=== PATIENT | male | born 1940 | race Caucasian/White ===

== ENCOUNTER → 2019-07-28 00:01 | Outpatient (RCR) | payer MEDICARE, SELFPAY | LOC: ONCMED 06-30 06:07 | PROVIDERS: Family Provider Physician Assistant Medical; Visit Provider Internal Medicine Medical Oncology | DX: Z51.11 Encounter for antineoplastic chemotherapy (principal); Z51.12 Encounter for antineoplastic immunotherapy; C83.38 Diffuse large B-cell lymphoma, lymph nodes of multiple sites; E78.5 Hyperlipidemia, unspecified; I25.10 Atherosclerotic heart disease of native coronary artery without angina pectoris; I25.5 Ischemic cardiomyopathy; I11.0 Hypertensive heart disease with heart failure; I50.9 Heart failure, unspecified; J44.9 Chronic obstructive pulmonary disease, unspecified; G25.0 Essential tremor; H40.9 Unspecified glaucoma; F17.210 Nicotine dependence, cigarettes, uncomplicated; Z79.82 Long term (current) use of aspirin; Z79.899 Other long term (current) drug therapy; Z85.118 Personal history of other malignant neoplasm of bronchus and lung; Z90.2 Acquired absence of lung [part of]; Z87.01 Personal history of pneumonia (recurrent) | CPT/HCPCS: 80053 ×3; 83615 ×3; 85025 ×3; 96367 ×2; 96368; 96372; 96375; 96413 ×3; 96415; 96417; 99214; J1100; J1453; J1642 ×4; J2405 ×2; J2469; J2505; J7040 ×5; J7050 ×2; J9070 ×2; J9181 ×3; J9312 ×2; J9370 ==

== ENCOUNTER 2019-08-11 05:41 | Outpatient (RCR) | payer MEDICARE, SELFPAY ==
[2019-08-04 12:35] LABS: Basophils # 0.1 10^3/uL (0.0-0.1); Basophils % 0.6 %; Eosinophils # 0.1 10^3/uL (0.0-0.8); Hemoglobin 11.2 g/dL (11.7-16.6); Lymphocytes # 1.5 10^3/uL (0.8-4.8); Lymphocytes % 14.6 %; Mean Corpuscular HGB Conc 29.5 g/dL (30.0-36.0); Mean Corpuscular Hemoglobin 25.3 pg (28.0-34.0); Mean Platelet Volume 10.9 fL (7.4-10.4); Monocytes # 0.8 10^3/uL (0.2-0.9); Monocytes % 7.4 %; Neutrophils # 7.3 10^3/uL (1.8-7.7); Neutrophils % 72.1 %; Nucleated Red Blood Cells % 0 %; Platelet Count 354 10^3/cmm (130-400); Red Blood Count 4.42 10^6/uL (4.1-5.3); Red Cell Distribution Width 15.5 % (12.1-15.1); White Blood Count 10.2 10^3/uL (4.0-10.0)
[2019-08-10 15:50] LABS: Basophils % 0.5 %; Eosinophils # 0.1 10^3/uL (0.0-0.8); Eosinophils % 0.9 %; Hematocrit 38.3 % (42.0-52.0); Lymphocytes # 1.5 10^3/uL (0.8-4.8); Lymphocytes % 17.5 %; Mean Corpuscular HGB Conc 28.7 g/dL (30.0-36.0); Mean Corpuscular Hemoglobin 24.9 pg (28.0-34.0); Mean Corpuscular Volume 86.8 fL (80-94); Mean Platelet Volume 11.2 fL (7.4-10.4); Monocytes # 0.9 10^3/uL (0.2-0.9); Monocytes % 10.4 %; Neutrophils # 5.9 10^3/uL (1.8-7.7); Neutrophils % 69.4 %; Nucleated Red Blood Cells % 0 %; Platelet Count 382 10^3/cmm (130-400); Red Blood Count 4.41 10^6/uL (4.1-5.3); Red Cell Distribution Width 15.2 % (12.1-15.1); White Blood Count 8.5 10^3/uL (4.0-10.0)
[2019-08-10 16:49] LABS: Alanine Aminotransferase 6 U/L (0-41); Albumin Level 3.8 g/dL (3.5-5.2); Alkaline Phosphatase 105 IU/L (40-130); Anion Gap 15.8 (5-19); Aspartate Amino Transferase 12 U/L (0-40); Blood Urea Nitrogen 10 mg/dL (8-23); Calcium 9.6 mg/Dl (8.8-10.2); Carbon Dioxide 26 mmol/L (22-29); Chloride 101 mmol/L (98-107); Globulin 2.8 g/dL (1.3-4.6); Glucose 129 mg/dL (74-106); Lactate Dehydrogenase 161 U/L (135-225); Potassium 3.8 mmol/L (3.5-5.1); Sodium 139 mmol/L (136-145); Total Bilirubin 0.2 mg/dL (0.15-1.2); Total Protein 6.6 g/dL (6.6-8.7)
--- NOTE | 2019-08-15 12:25 | ONC FU_ITS ---
Dr. Felton Patient Follow-Up Note Patient: Lazaro Vásquez Unit #: [id number]: 1940 Dicatated By: José Manuel Felton M.D.Date of Visit:Aug 11, 2019 Onc Med Follow-up/Prog Note Chief Complaint: Lymphoma. 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 He has a history of Crohn's disease, for which he had been on treatment with Remicade. 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 There was no invasion of pleural effusions and all margins were free. There was no involvement in 5 peribronchial lymph nodes and no involvement in a total of 8 mediastinal lymph nodes. His disease was pathologic stage IA2 (T1b, N0, M0). He received no additional treatment. In November 2018 he had presented with an enlarged lymph node on the right side of the neck. According to his 's description, it came up very quickly. Neck CT on 12/11/2018 showed a well circumcised mass at level IIA on the right side measuring 2.8 x 2.0 x 3.3 cm. There was no adjacent lymphadenopathy noted. Surveillance chest CT on 01/21/2019 showed complete atelectasis of the right middle lobe, new from previous studies. A mixed soft tissue and groundglass pulmonary nodule within the left upper lobe was not significantly changed measuring 1.7 x 1.2 cm. There were no pathologically enlarged thoracic lymph nodes. Further evaluation with PET/CT showed marked increase in metabolic activity in the right neck mass, SUV 16.82. Multiple small right paratracheal lymph nodes were present extending to the pretracheal area with maximum SUV 2.40. An extensive right upper anterolateral mediastinal tissue mass showed marked increase metabolic activity, SUV 8.98. Right level II and III axillary lymph nodes also demonstrated increased metabolic activity. There was no pulmonary nodularity or focal increase of metabolic activity noted. A marked focus of increased metabolic activity was noted in the cecum corresponding to solid soft tissue, maximum SUV 9.0. The uptake in the neck mass, mediastinal lymph nodes, and axillary lymph nodes was felt to be consistent with metastatic involvement. The significance of the uptake in the cecum was not mentioned. He underwent excisional biopsy of the right neck mass on 03/03/2019. Pathology was consistent with diffuse large B-cell lymphoma. The B cells were CD30 positive and MUM-1 negative, consistent with germinal center subtype. I had seen him initially on 03/19/2019. I reviewed options for treatment. He was agreeable to begin a trial of chemotherapy with R-CEOP. In addition, I had a discussion with his parachute repairer, Dr. Isaías Patino, and he was agreeable to stopping the Remicade. His medical history is also significant for hypertension, dyslipidemia, and coronary artery disease with ischemic cardiomyopathy and congestive heart failure. Other medical illnesses include COPD, esophageal dysmotility, benign essential tremor, and glaucoma. He has a history of nephrolithiasis. He has a history of smoking for 1 pack of cigarettes daily for 50 years. He has cut down to 2 or 3 cigarettes per day. INTERIM HISTORY: He began cycle 1 of R-CEOP on 04/14/2019. He was able to tolerated with acceptable toxicity, and he proceeded with cycle 2 on 05/06/2019. Restaging PET/CT on 05/23/2019 showed a region of activity in the subcutaneous posterior triangle on the right side of the neck measuring 9 mm with SUV 5.5, suspicious for residual malignancy. There were no other sites of abnormal uptake. A left upper lobe pulmonary nodule was FDG negative. Activity at the cecal anastomosis appeared physiological. He proceeded with cycle 3 of R-CEOP on 06/01/2019. On 06/22/2019 he had presented to the emergency room in [place] with epistaxis and hemoptysis. His blood counts were adequate. He was transferred to [facility] in [place] for admission. On evaluation, which included bronchoscopy, he was determined to have pneumonia. He was discharged home on antibiotic therapy and the pulmonary nebulizer. I had seen him for a follow-up visit on 07/07/2019. I did opt to delay his chemotherapy, as he was still recovering from the pneumonia. He then returned to complete his fourth cycle of R-CEOP on 07/15/2019. Restaging PET/CT on 08/08/2019 showed no evidence of active malignancy. The left upper lobe groundglass pulmonary nodule remained FDG negative. He is seen for a follow-up visit. He says he is feeling pretty good, though he still has limited activity. He is up and around. ECOG score is 2. His appetite is not too good. He has been supplementing with Ensure. His weight is stable. He does not have fever or night sweats. He does have some sinus drainage. He says his cough is about gone. He has had no further hemoptysis. He does not complain of shortness of breath or chest pain. He had diarrhea 1 day following his last chemotherapy treatment. He otherwise tends to have constipation. He has no other GI complaints. Bladder function remains adequate. He has no significant joint or bone pain. He does report having numbness/tingling in his feet. Medications: amLODIPine Besylate 1 (10 mg) Tablet Oral daily, Aspirin 1 (81 mg) Tablet Oral daily, Atorvastatin Calcium 1 (20 mg) Tablet Oral daily, Carvedilol 1 (3.125 mg) Tablet Oral b.i.d., Ferrous Sulfate 1 Tablet (of 325 (65 fe) mg) Tablet, enteric coated Oral daily, Losartan Potassium 1 (50 mg) Tablet Oral daily, Plavix 1 (75 mg) Tablet Oral daily, Protonix 1 Tablet (of 40 mg) Tablet, enteric coated Oral daily, Questran 4 (4 g/dose) Powder Oral PRN Allergies: Codeine Sulfate Review of Systems: Constitutional - His energy is getting better. He has limited activity, but he is up and around. His appetite is not too good. He is supplementing with Ensure. His weight is stable. He does not have fever or night sweats. ECOG score is 2, ENMT - He has sinus drainage. He had sore mouth. He used mouthwash and that took care of it. No sore throat or difficulty swallowing, Hematologic/Lymphatic - He bruises easily, Respiratory - No shortness of breath. His cough has gotten much better. He has not had anymore blood come up. No pleuritic pain or hemoptysis, Cardiovascular - No angina pain. No palpitations, Gastrointestinal - No nausea or vomiting. No heartburn or acid reflux. He takes Miralax for his bowels. No blood in the stool or black stools, Genitourinary (M) - No dysuria or hematuria. No urinary frequency. No urgency or incontinence, Musculoskeletal - No joint or bone pain, Integumentary - No skin complications, Neurologic - No headache. He gets dizzy and light-headed. He has numbness and tingling in his feet, Psychiatric - No anxiety or depression. No insomnia. Vital Signs: Performed on Aug 11, 2019 09:49 Height - 67.00 in Weight - 123.0 lbs (LOW) BSA - 1.64 sq.m BMI - 19.26 Temperature - 98.1 F (LOW) Pulse - 71 /min Respiration - 15 /min BP - 124/66 mm(hg) O2 Sat - 98 % Pain - 0 Physical Examination: Constitutional - He still appears somewhat weak generally, Eyes - Sclerae nonicteric. Conjunctivae clear, ENMT - No lesions noted in the oral cavity, Hematologic/Lymphatic - No cervical, clavicular, or axillary adenopathy noted, Respiratory - Lungs sound clear with diminished air movement bilaterally, Cardiovascular - Heart rhythm is irregular. There is no murmur, gallop, or rub noted, Abdomen - Soft. Liver and spleen are not enlarged. There is no abdominal mass or ascites noted and there is no inguinal adenopathy, Extremities - No edema. He has chronic purpura on both arms, Integumentary - He has an eczematous skin eruption on both hands, worse on the left, Neurologic - No focal neurologic deficits noted. Lab/Imaging: Test performed on Aug 10, 2019 11:30 Glucose 129 mg/dL LDH, Total 161 IU/L BUN 10 mg/dL Creatinine 0.6 mg/dL Cr Clearance (Est) 79.42 mL/min Sodium 139 mmol/L Potassium 3.8 mmol/L Chloride 101 mmol/L CO2 26 mmol/L Calcium 9.6 mg/dL Protein, Total 6.6 g/dL Albumin 3.8 g/dL Globulin 2.8 g/dL Bilirubin, Total 0.2 mg/dL Alkaline Phosphatase 105 IU/L AST (SGOT) 12 IU/L ALT (SGPT) 6 IU/L WBC 8.5 10^9/L RBC 4.41 10^12/L HGB 11.0 g/dL HCT 38.3 % MCV 86.8 fl MCH 24.9 pg MCHC 28.7 g/dL RDW 15.2 % Platelet Count 382 10^9/L MPV 11.2 fL Neutrophils (Gran) 5.9 10^9/L Lymphocytes 1.5 10^9/L Monocytes 0.9 10^9/L Eosinophils 0.1 10^9/L Basophils 0.0 10^9/L Manual Lymphocytes 17.5 % Manual Monocytes 10.4 % Manual Eosinophils 0.9 % Manual Basophils 0.5 % NRBCs 0.0 /100 WBC Impression: 1. Patient with diffuse large B-cell lymphoma, germinal center subtype. By clinical evaluation, he had at least stage II disease. His IPI score with stage II disease and normal LDH was 2, low-intermediate risk. 2. There was also PET/CT evidence of FDG uptake in the area of the cecum, clinical significance of which was uncertain. 3. 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 4. He has Crohn's disease for which he had been on long-term treatment with Remicade. His other medical illnesses include: 5. Hypertension. 6. Dyslipidemia. 7. Coronary artery disease with ischemic cardiomyopathy and congestive heart failure. 8. COPD. 9. Esophageal dysmotility. 10. Benign essential tremor. 11. History of nephrolithiasis. 12. Glaucoma. He has undergone treatment with 4 cycles of R-CEOP chemotherapy from 04/14/2019 07/15/2019. He also was taken off Remicade. He required hospital admission for pneumonia on 06/22/2019, though he was not neutropenic. He otherwise tolerated the chemotherapy well. He has had a complete response by PET/CT. Thus far there has been no indication clinically of any exacerbation of his Crohn's disease since he has been off the Remicade. Plan: As he has had a very good response to the chemotherapy and he will remain off immunosuppression, he will now be followed on observation/expectant management for the lymphoma. He will continue his regular follow-up with Dr. Patino. I will see him again in 3 months, or sooner as needed. Signed By: José Manuel Felton M.D. <<Signature on File>>
== END 2019-08-28 23:59 | disposition home or self-care (01) ==
LOC: ONCMED 05:41
PROVIDERS: Family Provider Physician Assistant Medical; Visit Provider Internal Medicine Medical Oncology
DX: C83.38 Diffuse large B-cell lymphoma, lymph nodes of multiple sites (principal); Z45.2 Encounter for adjustment and management of vascular access device; K50.90 Crohn's disease, unspecified, without complications; Z90.2 Acquired absence of lung [part of]; E78.5 Hyperlipidemia, unspecified; I25.10 Atherosclerotic heart disease of native coronary artery without angina pectoris; I25.5 Ischemic cardiomyopathy; I11.0 Hypertensive heart disease with heart failure; I50.9 Heart failure, unspecified; J44.9 Chronic obstructive pulmonary disease, unspecified; G25.0 Essential tremor; H40.9 Unspecified glaucoma; F17.210 Nicotine dependence, cigarettes, uncomplicated; Z79.899 Other long term (current) drug therapy; Z79.82 Long term (current) use of aspirin; Z79.02 Long term (current) use of antithrombotics/antiplatelets; Z85.118 Personal history of other malignant neoplasm of bronchus and lung; Z87.442 Personal history of urinary calculi; Z87.01 Personal history of pneumonia (recurrent)
CPT/HCPCS: 80053; 83615; 85025; 96523; 99214

== ENCOUNTER 2019-11-04 12:27 | Outpatient (CLI) | payer MEDICARE, SELFPAY ==
[2019-11-04 12:53] LABS: Basophils % 0.4 %; Eosinophils # 0.1 10^3/uL (0.0-0.8); Eosinophils % 1.7 %; Hematocrit 39.6 % (42.0-52.0); Hemoglobin 11.6 g/dL (11.7-16.6); Lymphocytes # 1.6 10^3/uL (0.8-4.8); Lymphocytes % 19.5 %; Mean Corpuscular HGB Conc 29.3 g/dL (30.0-36.0); Mean Corpuscular Hemoglobin 23.9 pg (28.0-34.0); Mean Corpuscular Volume 81.5 fL (80-94); Mean Platelet Volume 10.4 fL (7.4-10.4); Monocytes # 0.8 10^3/uL (0.2-0.9); Monocytes % 8.9 %; Neutrophils # 5.4 10^3/uL (1.8-7.7); Neutrophils % 63.8 %; Nucleated Red Blood Cells % 0 %; Platelet Count 254 10^3/cmm (130-400); Red Blood Count 4.86 10^6/uL (4.1-5.3); Red Cell Distribution Width 15.9 % (12.1-15.1); White Blood Count 8.4 10^3/uL (4.0-10.0)
[2019-11-04 13:13] LABS: Alanine Aminotransferase < 5 U/L (0-41); Albumin Level 3.7 g/dL (3.5-5.2); Alkaline Phosphatase 107 IU/L (40-130); Anion Gap 14.6 (5-19); Aspartate Amino Transferase 12 U/L (0-40); Blood Urea Nitrogen 8 mg/dL (8-23); Calcium 9.3 mg/dL (8.5-10.5); Carbon Dioxide 26 mmol/L (22-29); Chloride 103 mmol/L (98-107); Globulin 2.7 g/dL (1.3-4.6); Glucose 123 mg/dL (65-115); Lactate Dehydrogenase 173 U/L (135-225); Osmolality Calculated 287 mOsm/kg (285-295); Potassium 3.6 mmol/L (3.5-5.1); Sodium 140 mmol/L (136-145); Total Bilirubin 0.4 mg/dL (0.15-1.2); Total Protein 6.4 g/dL (6.6-8.7)
[2019-11-04 14:01] LABS: Slide Review Slide Review Perform
[2019-11-04 15:38] LABS: Iron 42 ug/dL (59-158); Percent Saturation 17.5 % (20-50); Total Iron Binding Capacity 239 mcg/dl; Unsaturated Iron Binding 197 ug/dL (112-347)
--- NOTE | 2019-11-04 19:03 | ONC FU_ITS ---
Dr. Felton Patient Follow-Up Note Patient: Lazaro Vásquez Unit #: [id number]: [id number] Dicatated By: José Manuel Felton M.D.Date of Visit:Nov 04, 2019 Onc Med Follow-up/Prog Note Chief Complaint: Lymphoma. 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 He has a history of Crohn's disease, for which he had been on treatment with Remicade. 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 There was no invasion of pleural effusions and all margins were free. There was no involvement in 5 peribronchial lymph nodes and no involvement in a total of 8 mediastinal lymph nodes. His disease was pathologic stage IA2 (T1b, N0, M0). He received no additional treatment. In November 2018 he had presented with an enlarged lymph node on the right side of the neck. According to his 's description, it came up very quickly. Neck CT on 12/11/2018 showed a well circumcised mass at level IIA on the right side measuring 2.8 x 2.0 x 3.3 cm. There was no adjacent lymphadenopathy noted. Surveillance chest CT on 01/21/2019 showed complete atelectasis of the right middle lobe, new from previous studies. A mixed soft tissue and groundglass pulmonary nodule within the left upper lobe was not significantly changed measuring 1.7 x 1.2 cm. There were no pathologically enlarged thoracic lymph nodes. Further evaluation with PET/CT showed marked increase in metabolic activity in the right neck mass, SUV 16.82. Multiple small right paratracheal lymph nodes were present extending to the pretracheal area with maximum SUV 2.40. An extensive right upper anterolateral mediastinal tissue mass showed marked increase metabolic activity, SUV 8.98. Right level II and III axillary lymph nodes also demonstrated increased metabolic activity. There was no pulmonary nodularity or focal increase of metabolic activity noted. A marked focus of increased metabolic activity was noted in the cecum corresponding to solid soft tissue, maximum SUV 9.0. The uptake in the neck mass, mediastinal lymph nodes, and axillary lymph nodes was felt to be consistent with metastatic involvement. The significance of the uptake in the cecum was not mentioned. He underwent excisional biopsy of the right neck mass on 03/03/2019. Pathology was consistent with diffuse large B-cell lymphoma. The B cells were CD30 positive and MUM-1 negative, consistent with germinal center subtype. I had seen him initially on 03/19/2019. I reviewed options for treatment. He was agreeable to begin a trial of chemotherapy with R-CEOP. In addition, I had a discussion with his site damage prevention technician, Dr. Isaías Patino, and he was agreeable to stopping the Remicade. His medical history is also significant for hypertension, dyslipidemia, and coronary artery disease with ischemic cardiomyopathy and congestive heart failure. Other medical illnesses include COPD, esophageal dysmotility, benign essential tremor, and glaucoma. He has a history of nephrolithiasis. He has a history of smoking for 1 pack of cigarettes daily for 50 years. He has cut down to 2 or 3 cigarettes per day. INTERIM HISTORY: He began cycle 1 of R-CEOP on 04/14/2019. He was able to tolerated with acceptable toxicity, and he proceeded with cycle 2 on 05/06/2019. Restaging PET/CT on 05/23/2019 showed a region of activity in the subcutaneous posterior triangle on the right side of the neck measuring 9 mm with SUV 5.5, suspicious for residual malignancy. There were no other sites of abnormal uptake. A left upper lobe pulmonary nodule was FDG negative. Activity at the cecal anastomosis appeared physiological. He proceeded with cycle 3 of R-CEOP on 06/01/2019. On 06/22/2019 he had presented to the emergency room in [place] with epistaxis and hemoptysis. His blood counts were adequate. He was transferred to [facility] in [place] for admission. On evaluation, which included bronchoscopy, he was determined to have pneumonia. He was discharged home on antibiotic therapy and the pulmonary nebulizer. I had seen him for a follow-up visit on 07/07/2019. I did opt to delay his chemotherapy, as he was still recovering from the pneumonia. He then returned to complete his fourth cycle of R-CEOP on 07/15/2019. Restaging PET/CT on 08/08/2019 showed no evidence of active malignancy. The left upper lobe groundglass pulmonary nodule remained FDG negative. He was then followed on observation/expectant management. He is seen for a follow-up visit. He had seen Alejandro Robbins last week after he had developed low-grade fever and chills. He was given antibiotic therapy, and he has been getting better. His energy had been pretty good prior to that illness, though he still had limited activity. His ECOG score is 2. His appetite comes and goes, but he has gained weight. He has otherwise not have fever or night sweats. His breathing has been good. He has not had cough, and he does not complain of chest pain. He has not been having nausea or vomiting. He has diarrhea associated with the Crohn's disease, but it is managed adequately with medication. He has no complaints. He has no significant joint or bone pain. He does not complain of headache or dizziness. He has some numbness/tingling in his feet. Medications: amLODIPine Besylate 1 (10 mg) Tablet Oral daily, Aspirin 1 (81 mg) Tablet Oral daily, Atorvastatin Calcium 1 (20 mg) Tablet Oral daily, Carvedilol 1 (3.125 mg) Tablet Oral b.i.d., Ferrous Sulfate 1 Tablet (of 325 (65 fe) mg) Tablet, enteric coated Oral daily, Levaquin 20 mL Liquid Oral daily for 10 days, Losartan Potassium 1 (50 mg) Tablet Oral daily, Plavix 1 (75 mg) Tablet Oral daily, Protonix 1 Tablet (of 40 mg) Tablet, enteric coated Oral daily, Questran 4 (4 g/dose) Powder Oral PRN Allergies: Codeine Sulfate Review of Systems: Constitutional - He feels that he is doing better overall. His appetite is good and weight is up 6 pounds from last visit. He had a recent fever with chills, for which he has been on antibiotic therapy. No hot flashes or night sweats. ECOG score is 2, ENMT - No sinus congestion/drainage. No mouth sores. No sore throat or difficulty swallowing, Hematologic/Lymphatic - No abnormal bruising or bleeding, Respiratory - No shortness of breath. No cough. No pleuritic pain or hemoptysis, Cardiovascular - No angina pain. No palpitations, Gastrointestinal - No nausea or vomiting. No heartburn or acid reflux. He has diarrhea associated with Crohn's disease, but it is adequately controlled with medication. No constipation. No blood in the stool or black stools, Genitourinary (M) - No dysuria or hematuria. No urinary frequency. No urgency or incontinence, Musculoskeletal - No joint or bone pain, Integumentary - No skin complications, Neurologic - No headache or dizziness. He has numbness/tingling in her feet, Psychiatric - No anxiety or depression. No insomnia. Vital Signs: Performed on Nov 04, 2019 14:03 Height - 67.00 in Weight - 129.4 lbs (HIGH) BSA - 1.68 sq.m BMI - 20.27 Temperature - 97.6 F (LOW) Pulse - 59 /min (LOW) Respiration - 20 /min BP - 140/65 mm(hg) O2 Sat - 96 % Pain - 0 Physical Examination: Constitutional - He appears somewhat frail generally, Eyes - Sclerae nonicteric. Conjunctivae clear, ENMT - No lesions noted in the oral cavity, Hematologic/Lymphatic - No cervical, clavicular, or axillary adenopathy noted, Respiratory - Lungs sound clear with diminished air movement bilaterally, Cardiovascular - Heart rhythm is irregular. There is no murmur, gallop, or rub noted, Abdomen - Soft. Liver and spleen are not enlarged. There is no abdominal mass or ascites noted and there is no inguinal adenopathy, Extremities - No edema. He has chronic purpura on both arms, Neurologic - No focal neurologic deficits noted. Lab/Imaging: Test performed on Nov 04, 2019 12:40 LDH (Total) 173 U/L Sodium 140 mmol/L Potassium 3.6 mmol/L Chloride 103 mmol/L CO2 26 mmol/L Anion Gap 14.6 BUN 8 mg/dL Creatinine 0.7 mg/dL Cr Clearance (Est) 68.0800 mL/min Glucose 123 mg/dL Calcium 9.3 mg/dL Protein, Total 6.4 g/dL Albumin 3.7 g/dL Globulin 2.7 g/dL Bilirubin, Total 0.4 mg/dL ALT (SGPT) < 5 U/L AST (SGOT) 12 U/L Alkaline Phosphatase 107 IU/L WBC 8.4 10 3/uL RBC 4.86 10 6/uL HGB 11.6 g/dL HCT 39.6 % MCV 81.5 fL MCH 23.9 pg MCHC 29.3 g/dL RDW 15.9 % Platelet Count 254 10 3/cmm MPV 10.4 fL Neutrophils 5.4 10 3/uL Lymphocytes 1.6 10 3/uL Monocytes 0.8 10 3/uL Eosinophils 0.1 10 3/uL Basophils 0.0 10 3/uL Neutrophil % 63.8 % Lymphocyte % 19.5 % Monocyte % 8.9 % Eosinophil % 1.7 % Basophils % 0.4 % CBC Slide Review Slide Review Perform SLIDE REVIEW AGREES WITH AUTO DIFF. Impression: 1. Patient with diffuse large B-cell lymphoma, germinal center subtype. By clinical evaluation, he had at least stage II disease. His IPI score with stage II disease and normal LDH was 2, low-intermediate risk. 2. There was also PET/CT evidence of FDG uptake in the area of the cecum, clinical significance of which was uncertain. 3. 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 4. He has Crohn's disease for which he had been on long-term treatment with Remicade. His other medical illnesses include: 5. Hypertension. 6. Dyslipidemia. 7. Coronary artery disease with ischemic cardiomyopathy and congestive heart failure. 8. COPD. 9. Esophageal dysmotility. 10. Benign essential tremor. 11. History of nephrolithiasis. 12. Glaucoma. He has undergone treatment with 4 cycles of R-CEOP chemotherapy from 04/14/2019 07/15/2019. He also was taken off Remicade. He required hospital admission for pneumonia on 06/22/2019, though he was not neutropenic. He otherwise tolerated the chemotherapy well. He had a complete response by PET/CT. He is being followed on observation/expectant management. He recently was given antibiotic therapy for a febrile illness, which does appear to be resolving. He has otherwise been stable clinically. He has been able to manage his Crohn's disease adequately. Thus far there has been no evidence of recurrence of the lymphoma. He remains mildly anemic. Plan: He continues on observation/expectant management for the lymphoma. He will continue to have his port flushed monthly. I will see him again in 3 months. In the meantime, I will check his serum iron studies. If he is iron deficient, I will try and get him approved for parenteral iron replacement with Injectafer, as the GI symptoms with his Crohn's disease will preclude oral iron therapy. Signed By: José Manuel Felton M.D. <<Signature on File>>
== END 2019-11-04 12:28 | disposition home or self-care (01) ==
LOC: ONCMED 12:27
PROVIDERS: Family Provider Physician Assistant Medical; PCP Physician Assistant Medical; Visit Provider Internal Medicine Medical Oncology
DX: Z08 Encounter for follow-up examination after completed treatment for malignant neoplasm (principal); Z85.72 Personal history of non-Hodgkin lymphomas; Z85.118 Personal history of other malignant neoplasm of bronchus and lung; K50.90 Crohn's disease, unspecified, without complications; E78.5 Hyperlipidemia, unspecified; D64.9 Anemia, unspecified; I25.10 Atherosclerotic heart disease of native coronary artery without angina pectoris; I25.5 Ischemic cardiomyopathy; I11.0 Hypertensive heart disease with heart failure; I50.9 Heart failure, unspecified; J44.9 Chronic obstructive pulmonary disease, unspecified; G25.0 Essential tremor; Z87.442 Personal history of urinary calculi; H40.9 Unspecified glaucoma; Z79.82 Long term (current) use of aspirin; Z79.899 Other long term (current) drug therapy; Z87.01 Personal history of pneumonia (recurrent); Z92.21 Personal history of antineoplastic chemotherapy
CPT/HCPCS: 36591; 80053; 83540; 83550; 83615; 85025; 99214

== ENCOUNTER 2020-02-09 12:51 | Outpatient (CLI) | payer MEDICARE, SELFPAY ==
[2020-02-09 13:54] LABS: Alanine Aminotransferase 6 U/L (0-41); Albumin Level 3.6 g/dL (3.5-5.2); Alkaline Phosphatase 126 IU/L (40-130); Anion Gap 13.4 (5-19); Aspartate Amino Transferase 11 U/L (0-40); Blood Urea Nitrogen 5 mg/dL (8-23); Calcium 8.6 mg/dL (8.5-10.5); Carbon Dioxide 26 mmol/L (22-29); Chloride 102 mmol/L (98-107); Globulin 2.1 g/dL (1.3-4.6); Glucose 122 mg/dL (65-115); Lactate Dehydrogenase 124 U/L (135-225); Osmolality Calculated 283 mOsm/kg (285-295); Potassium 3.4 mmol/L (3.5-5.1); Sodium 138 mmol/L (136-145); Total Bilirubin 0.3 mg/dL (0.15-1.2); Total Protein 5.7 g/dL (6.6-8.7)
[2020-02-09 14:57] LABS: Basophils # 0.1 10^3/uL (0.0-0.1); Basophils % 0.4 %; Eosinophils # 0.1 10^3/uL (0.0-0.8); Eosinophils % 0.5 %; Hematocrit 45.9 % (42.0-52.0); Hemoglobin 14.1 g/dL (11.7-16.6); Lymphocytes # 1.7 10^3/uL (0.8-4.8); Lymphocytes % 15.3 %; Mean Corpuscular HGB Conc 30.7 g/dL (30.0-36.0); Mean Corpuscular Hemoglobin 26.4 pg (28.0-34.0); Mean Platelet Volume 10.9 fL (7.4-10.4); Monocytes # 0.9 10^3/uL (0.2-0.9); Monocytes % 7.7 %; Neutrophils # 8.35 10^3/uL (1.8-7.7); Nucleated Red Blood Cells % 0 %; Platelet Count 229 10^3/cmm (130-400); Red Blood Count 5.34 10^6/uL (4.1-5.3); Red Cell Distribution Width 16.3 % (12.1-15.1); White Blood Count 11.2 10^3/uL (4.0-10.0)
--- NOTE | 2020-02-09 19:09 | ONC FU_ITS ---
Dr. Felton Patient Follow-Up Note Patient: Lazaro Vásquez Unit #: [id number]: 1940 Dicatated By: José Manuel Felton M.D.Date of Visit:Feb 09, 2020 Onc Med Follow-up/Prog Note Chief Complaint: Lymphoma. 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 He has a history of Crohn's disease, for which he had been on treatment with Remicade. 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 There was no invasion of pleural effusions and all margins were free. There was no involvement in 5 peribronchial lymph nodes and no involvement in a total of 8 mediastinal lymph nodes. His disease was pathologic stage IA2 (T1b, N0, M0). He received no additional treatment. In November 2018 he had presented with an enlarged lymph node on the right side of the neck. According to his 's description, it came up very quickly. Neck CT on 12/11/2018 showed a well circumcised mass at level IIA on the right side measuring 2.8 x 2.0 x 3.3 cm. There was no adjacent lymphadenopathy noted. Surveillance chest CT on 01/21/2019 showed complete atelectasis of the right middle lobe, new from previous studies. A mixed soft tissue and groundglass pulmonary nodule within the left upper lobe was not significantly changed measuring 1.7 x 1.2 cm. There were no pathologically enlarged thoracic lymph nodes. Further evaluation with PET/CT showed marked increase in metabolic activity in the right neck mass, SUV 16.82. Multiple small right paratracheal lymph nodes were present extending to the pretracheal area with maximum SUV 2.40. An extensive right upper anterolateral mediastinal tissue mass showed marked increase metabolic activity, SUV 8.98. Right level II and III axillary lymph nodes also demonstrated increased metabolic activity. There was no pulmonary nodularity or focal increase of metabolic activity noted. A marked focus of increased metabolic activity was noted in the cecum corresponding to solid soft tissue, maximum SUV 9.0. The uptake in the neck mass, mediastinal lymph nodes, and axillary lymph nodes was felt to be consistent with metastatic involvement. The significance of the uptake in the cecum was not mentioned. He underwent excisional biopsy of the right neck mass on 03/03/2019. Pathology was consistent with diffuse large B-cell lymphoma. The B cells were CD30 positive and MUM-1 negative, consistent with germinal center subtype. I had seen him initially on 03/19/2019. I reviewed options for treatment. He was agreeable to begin a trial of chemotherapy with R-CEOP. In addition, I had a discussion with his bilingual interpreter, Dr. Isaías Patino, and he was agreeable to stopping the Remicade. He began cycle 1 of R-CEOP on 04/14/2019. He was able to tolerated with acceptable toxicity, and he proceeded with cycle 2 on 05/06/2019. Restaging PET/CT on 05/23/2019 showed a region of activity in the subcutaneous posterior triangle on the right side of the neck measuring 9 mm with SUV 5.5, suspicious for residual malignancy. There were no other sites of abnormal uptake. A left upper lobe pulmonary nodule was FDG negative. Activity at the cecal anastomosis appeared physiological. He proceeded with cycle 3 of R-CEOP on 06/01/2019. On 06/22/2019 he had presented to the emergency room in [place] with epistaxis and hemoptysis. His blood counts were adequate. He was transferred to [facility] in [place] for admission. On evaluation, which included bronchoscopy, he was determined to have pneumonia. He was discharged home on antibiotic therapy and the pulmonary nebulizer. I had seen him for a follow-up visit on 07/07/2019. I did opt to delay his chemotherapy, as he was still recovering from the pneumonia. He then returned to complete his 4th cycle of R-CEOP on 07/15/2019. Restaging PET/CT on 08/08/2019 showed no evidence of active malignancy. The left upper lobe groundglass pulmonary nodule remained FDG negative. He was then followed on observation/expectant management. His medical history is also significant for hypertension, dyslipidemia, and coronary artery disease with ischemic cardiomyopathy and congestive heart failure. Other medical illnesses include COPD, esophageal dysmotility, benign essential tremor, and glaucoma. He has a history of nephrolithiasis. He has a history of smoking for 1 pack of cigarettes daily for 50 years. He has cut down to 2 or 3 cigarettes per day. INTERIM HISTORY: He is seen for a follow-up visit. He says he has been feeling pretty good generally, though he does have limited activity. His ECOG score is 2. He has good appetite. His weight is up 4 pounds. He does not have fever or night sweats. His only significant complaint is that for the past 2 days he has been having episodes of feeling dizzy/off balance. He says it comes and goes. He has had similar episodes in the past. He is not having headache, and he has no focal neurologic symptoms. He has no shortness of breath, cough, or chest pain. He currently has no GI/ complaints. His bowel function has been okay. He has no significant joint or bone pain. Medications: amLODIPine Besylate 1 (10 mg) Tablet Oral daily, Aspirin 1 (81 mg) Tablet Oral daily, Atorvastatin Calcium 1 (20 mg) Tablet Oral daily, Carvedilol 1 (3.125 mg) Tablet Oral b.i.d., Ferrous Sulfate 1 Tablet (of 325 (65 fe) mg) Tablet, enteric coated Oral daily, Levaquin 20 mL Liquid Oral daily for 10 days, Losartan Potassium 1 (50 mg) Tablet Oral daily, Plavix 1 (75 mg) Tablet Oral daily, Protonix 1 Tablet (of 40 mg) Tablet, enteric coated Oral daily, Questran 4 (4 g/dose) Powder Oral PRN Allergies: Codeine Sulfate Review of Systems: Constitutional - He has been feeling pretty good, but he continues to have very limited activity. Appetite is not too bad. His weight is up 4 pounds. He has no fever or night sweats. ECOG score is 2, ENMT - No sinus congestion/drainage. No mouth sores. No sore throat or difficulty swallowing, Hematologic/Lymphatic - No abnormal bruising or bleeding, Respiratory - No shortness of breath. No cough. No pleuritic pain or hemoptysis, Cardiovascular - No angina pain. No palpitations, Gastrointestinal - No nausea or vomiting. No heartburn or acid reflux. No diarrhea or constipation. No blood in the stool or black stools, Genitourinary (M) - No dysuria or hematuria. No urinary frequency. No urgency or incontinence, Musculoskeletal - No joint or bone pain, Integumentary - No skin rash, Neurologic - No headache. For the past 2 days he has been having episodes of feeling dizzy/off balance. It comes and goes. No numbness or tingling. No other focal neurologic symptoms, Psychiatric - No anxiety or depression. No insomnia. Vital Signs: Performed on Feb 09, 2020 13:56 Height - 67.00 in Weight - 133.6 lbs (HIGH) BSA - 1.70 sq.m BMI - 20.92 Temperature - 98.0 F (LOW) Pulse - 62 /min Respiration - 18 /min BP - 129/68 mm(hg) O2 Sat - 97 % Pain - 0 Physical Examination: Constitutional - He appears generally weak and frail, Eyes - Sclerae nonicteric. Conjunctivae clear, ENMT - No lesions noted in the oral cavity, Hematologic/Lymphatic - There is a 3 cm node palpable on the right side of the neck, there is a small nodule just superior to it. I do not feel any adenopathy on the left side of the neck and there is no axillary adenopathy noted, Respiratory - Lungs sound clear with diminished air movement bilaterally, Cardiovascular - Heart rhythm is irregular. The rate is controlled. There is no murmur, gallop, or rub noted, Abdomen - Soft. Liver and spleen are not enlarged. There is no abdominal mass or ascites noted. There is a left inguinal hernia present. There is no inguinal adenopathy noted, Extremities - No edema. He has chronic purpura on both arms, Neurologic - No focal neurologic deficits noted. Lab/Imaging: Test performed on Feb 09, 2020 14:39 WBC 11.2 10 3/uL RBC 5.34 10 6/uL HGB 14.1 g/dL HCT 45.9 % MCV 86.0 fL MCH 26.4 pg MCHC 30.7 g/dL RDW 16.3 % Platelet Count 229 10 3/cmm MPV 10.9 fL Neutrophils 8.35 10 3/uL Lymphocytes 1.7 10 3/uL Monocytes 0.9 10 3/uL Eosinophils 0.1 10 3/uL Basophils 0.1 10 3/uL Neutrophil % 75.0 % Lymphocyte % 15.3 % Monocyte % 7.7 % Eosinophil % 0.5 % Basophils % 0.4 % NRBC % 0 % Test performed on Feb 09, 2020 13:20 LDH (Total) 124 U/L Sodium 138 mmol/L Potassium 3.4 mmol/L Chloride 102 mmol/L CO2 26 mmol/L Anion Gap 13.4 BUN 5 mg/dL Creatinine 0.6 mg/dL Cr Clearance (Est) 78.1200 mL/min Glucose 122 mg/dL Calcium 8.6 mg/dL Protein, Total 5.7 g/dL Albumin 3.6 g/dL Globulin 2.1 g/dL Bilirubin, Total 0.3 mg/dL ALT (SGPT) 6 U/L AST (SGOT) 11 U/L Alkaline Phosphatase 126 IU/L Impression: 1. Patient with diffuse large B-cell lymphoma, germinal center subtype. By clinical evaluation, he had at least stage II disease. His IPI score with stage II disease and normal LDH was 2, low-intermediate risk. 2. There was also PET/CT evidence of FDG uptake in the area of the cecum, clinical significance of which was uncertain. 3. 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 4. He has Crohn's disease for which he had been on long-term treatment with Remicade. His other medical illnesses include: 5. Hypertension. 6. Dyslipidemia. 7. Coronary artery disease with ischemic cardiomyopathy and congestive heart failure. 8. COPD. 9. Esophageal dysmotility. 10. Benign essential tremor. 11. History of nephrolithiasis. 12. Glaucoma. He has undergone treatment with 4 cycles of R-CEOP chemotherapy from 04/14/2019 07/15/2019. He also was taken off Remicade. He required hospital admission for pneumonia on 06/22/2019, though he was not neutropenic. He otherwise tolerated the chemotherapy well. He had a complete response by PET/CT. He has been followed on observation/expectant management following completion of the chemotherapy. He has continued to have very limited activity tolerance, and for the past 2 days he has had episodes of feeling dizzy/off balance. He has no other significant complaints at this time, but he does appear to have new adenopathy on the right side of the neck. Plan: He will be scheduled for contrast-enhanced CT of the neck. If that does show lymphadenopathy, he will then be scheduled for staging PET/CT and he will have evaluation with biopsy as indicated. However, with multiple underlying medical illnesses and fairly marginal performance status, he will have poor prognosis if this does turn down man to be recurrent lymphoma. Signed By: José Manuel Felton M.D. <<Signature on File>>
== END 2020-02-09 12:52 | disposition home or self-care (01) ==
LOC: ONCMED 12:56
PROVIDERS: PCP Physician Assistant Medical; Visit Provider Internal Medicine Medical Oncology
DX: C83.38 Diffuse large B-cell lymphoma, lymph nodes of multiple sites (principal); K50.90 Crohn's disease, unspecified, without complications; Z85.118 Personal history of other malignant neoplasm of bronchus and lung; E78.5 Hyperlipidemia, unspecified; I25.10 Atherosclerotic heart disease of native coronary artery without angina pectoris; I25.5 Ischemic cardiomyopathy; I50.9 Heart failure, unspecified; I11.0 Hypertensive heart disease with heart failure; J44.9 Chronic obstructive pulmonary disease, unspecified; G25.0 Essential tremor; H40.9 Unspecified glaucoma; F17.210 Nicotine dependence, cigarettes, uncomplicated; Z90.2 Acquired absence of lung [part of]; K22.4 Dyskinesia of esophagus; Z79.02 Long term (current) use of antithrombotics/antiplatelets; Z92.21 Personal history of antineoplastic chemotherapy
CPT/HCPCS: 36415; 36591; 80053; 83615; 85025; 99214

== ENCOUNTER 2020-02-22 06:50 | Outpatient (RCR) | payer MEDICARE, SELFPAY ==
--- NOTE | 2020-02-18 12:16 | N.ONRAD NP_ITS ---
Radiation Oncology New Patient Visit Patient: Lazaro Vásquez MR#: [id number] : 1940> Age: 80> Sex: Male> Dictated by: Dr. 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 Radiotherapy to date: The patient reports a remote prior history of prostatic LDR brachytherapy for diagnosis of prostate cancer (medical records unavailable to me). Chief Complaint / History of Present Illness: The patient is an 80-year-old male with a past medical history significant for a T1 N0 M0 non-small cell lung carcinoma of the right upper lobe treated with lobectomy and mediastinal lymphadenopathy in 2018 which revealed a 1.5 cm mass of poorly differentiated squamous cell carcinoma, widely negative postsurgical margins, and 0/15 involved lymph nodes. Surveillance has been negative to date. The patient also has a medical history significant for stage II, IPI 2, low-intermediate risk diffuse large B-cell lymphoma diagnosed 03/03/2019. The history of this malignancy is as follows. The patient presented in November 2017 with a rapidly progressing right neck mass. A subsequent CT of the neck (12/11/2018) revealed a 3.3 cm right level 2A lymph node. In addition, a CT of the chest (01/21/[address] neck 12/11/2018, CT chest abdomen pelvis 05/08/2018, CT chest 11/05/2017) revealed a stable soft tissue and groundglass pulmonary nodule in the left upper lobe measuring 7 mm, and new complete atelectasis of the right middle lobe with radiographic findings consistent with mucous plugging. A PET/CT (02/06/2019 versus 10/10/2017) revealed FDG avid conglomeration of right paratracheal and mediastinal lymph nodes extending from the right infraclavicular region to a level below the vita; right anterior mediastinal mass, progressive right cervical level II lymph nodes now measuring 4.2 cm; 3 axillary lymph nodes, and an FDG avid soft tissue mass in the cecum (physiologically most consistent with surgical anastomosis from previous resection related to Crohn's disease). On 03/03/2019 the patient underwent an excisional right neck lymph node biopsy with pathology revealing diffuse large B-cell lymphoma best classified as a germinal center B-cell type. The patient was subsequently evaluated by Dr. Felton on 03/17/2019 who diagnosed him with stage II, IPI 2, low to intermediate risk diffuse large B-cell lymphoma. The patient was subsequently evaluated by [facility] and it was recommended to begin therapy with RCEOP. The patient subsequently received 2 cycles of RCEOP (initiated 04/13/2019) and a subsequent PET/CT (05/23/2019) revealed a near complete yet partial response due to a 9 mm focus of lymph nodes in the right posterior triangular neck with an SUV of 5.5 suspicious for disease. The patient subsequently received 2 additional cycles of RCEOP (initiated 06/01/2019) and a subsequent PET (08/08/2019) revealed [place] complete response. The patient did well during surveillance however on 02/10/[address] of the neck with contrast at [facility] revealed a progressive right level 3 neck mass measuring 3.7 x 2.5 x 5 cm. A subsequent PET/CT (02/13/2020) revealed several recurrent FDG avid lymph nodes within the right neck at level II/III. Discussions with Dr. Felton suggested that further systemic therapy would not be ideal in this patient. The patient is seen today in consultation and he reports no B symptoms, and no pain in his right neck. Imaging Review: I reviewed the radiographic images discussed above. Current Medications: Acetaminophen, amLODIPine Besylate, aspirin, atorvastatin Calcium, carvedilol, cyclophosphamide, dexamethasone Sodium Phosphate, diphenhydrAMINE HCl, emend, etoposide, ferrous Sulfate, levaquin, losartan Potassium, neulasta Onpro, nystatin, ondansetron HCl, palonosetron HCl, plavix, potassium Chloride, potassium Chloride ER, predniSONE, prochlorperazine Maleate, protonix, protonix, questran, riTUXimab, sodium Chloride, vinCRIStine Sulfate. Allergies: Codeine Sulfate. Medical History: - Benign essential tremor, - chronic obstructive pulmonary disease, - congestive heart failure, - coronary artery disease, - crohn's disease, - depression, - dyslipidemia, - esophageal dysmotility, - glaucoma, - history of myocardial infarction, - history of nephrolithiasis, - hypertension, - severe left ventricular dystolic dysfunction. No history of collagen vascular disease. No previous radiation therapy. Surgical History: Back surgery in 1989, bilateral cataract excisions, bladder repair, cholecystectomy, coronary artery bypass, ileocolostomy, lower anterior resection, multiple skin cancer excisions and right upper lobectomy for nonsmall cell carcinoma on 12/02/2017. Family History: Father is at age 83 having experienced Crohn's disease, and heart disease. Mother is at age 95 having experienced stroke. Brother is at age 76 having experienced prostate cancer. Brother is at age 83 having experienced heart disease. Father at age 83. They think he may have had Crohn's disease. Mother of stroke at age 95. A brother of prostate cancer age 76. Another brother has heart disease. A sister with renal failure. Another sister also is , cause unknown to the patient. Social History: Last screened on 02/18/2020 - Yes - but has quit. Smoked 0.5 packs/day for 50 years (25 pack years). Last screened on 02/18/2020 - Never drank. Patient indicated use of the following products: cigarettes. Patient indicated access to the following support systems: Adequate transportation available for expected visits, Lives in own house, Lives with spouse, significant other, family, or friends, and Supportive family/friends willing to assist with needs. Patient indicated the following nutritional habits: Regular meals. Patient indicated participation in the following forms of activity: Light exercise. Current Complaints / Review of Systems: Constitutional - Denies lack of appetite, fatigue, fever, night sweats and change in weight. Eyes - Complains of blurred vision in the right eye. Denies double vision. ENMT - Complains of problems with hearing and altered taste but has been this way for years. Denies dysphagia but has odynophagia, ear pain, mouth dryness, stomatitis and tinnitus. Neck - Complains of neck masses on the left side of the neck. Denies neck pain and decreased range of motion. Integumentary - Denies rash. Cardiovascular - Complains of edema in the left leg. Denies arrhythmias and chest pain. Respiratory - Complains of cough occasionally. Denies dyspnea and wheezing. Gastrointestinal - Complains of abdominal pain that is persistent which is related to Chrohn's disease. Complains of intermittent diarrhea. Denies constipation, heartburn / dyspepsia, melena / GI bleeding, nausea and vomiting. Genitourinary (M) - Denies dysuria, frequency, nocturia and urgency. Musculoskeletal - Complains of muscle weakness in the lower extremity. Denies bone pain and joint pain. Neurologic - Complains of intermittent dizziness. Complains of abnormal gait. Denies headaches. Endocrine - Denies diabetes and thyroid disease. Hematologic/Lymphatic - Complains of tender or enlarged lymph nodes on the right side of the neck.. Vital Signs: Performed on 02/18/2020 8:46 AM BMI - 20.894 kg/m2, Height - 67.00 in, Weight - 133.4 lbs, Temperature - 97.6 f, Pulse - 61, Respiration - 18, O2 Sat - 96 %, Pain - 0 and BP - 131/ 66 mm(hg). Physical Exam: GENERAL:??? The patient is alert, and in no acute distress. HEENT:??? Head is normocephalic. Face is symmetric. External ocular movements are intact. Sclera and conjunctivae are non erythematous. NECK:??? Trachea is midline.??? Thyroid is not enlarged by palpation.??? LYMPH NODES:???A 5 centimeter palpable lymph node is appreciated on the patient's right neck. There are no other palpable lymph nodes within the patient's neck. LUNGS:??? Clear to auscultation bilaterally. Respiratory movement is unlabored. HEART:??? Regular rate and rhythm. ABDOMEN:??? Soft, nontender, without palpable mass.??? No hepatosplenomegaly. EXTREMITIES:??? No deformities. 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 Cranial nerves II-XII are intact and without focal deficits.??? Psych: Affect is normal. Skin: Cursory review of the skin reveals no obvious lesions concerning for malignancy. Performance Status: 2 - Ambulatory/capable of all self-care, unable to perform any work activities. Up and about more than 50% of waking hours. (ECOG) Pathology: Primary, d50.8 - other iron deficiency anemias, Diagnosed 05/25/2019 (active), Primary, c83.38 - diffuse large b-cell lymphoma, lymph nodes of multiple sites, Diagnosed 03/17/2019 (active) stage iia, ii, a, Primary, c34.11 - malignant neoplasm of upper lobe, right bronchus or lung, Diagnosed 03/17/2019 (active) stage ia, t1b, n0, m0 and Secondary, hypokalemia, Diagnosed 2018 (active). Lab: Test performed on 11/04/2019 12:40 PM Iron - 42 mcg/dl (low), % Iron Saturation - 17.5 % (low), Test performed on 02/09/2020 1:20 PM Potassium - 3.4 mmol/l (low), BUN - 5 mg/dl (low), Creatinine - 0.6 mg/dl (low), Glucose - 122 mg/dl (high), Protein, Total - 5.7 g/dl (low), LDH (Total) - 124 u/l (low) and Test performed on 02/09/2020 2:39 PM Neutrophils - 8.35 10 3/ul (high). Pain assessment: This patient???s pain was personally assessed by me. This patient requires no adjustments to pain medications at this time. Assessment/Plan: The patient is an 80-year-old male with a history of stage II, IPI II, low to intermediate risk diffuse large B cell lymphoma treated with 4 cycles of RCEOP who initially experienced a complete response after the fourth cycle. The patient now has refractory disease within the right neck and further systemic therapy is not ideal per his treating medical oncologist. The plan therefore is to offer involved site radiation therapy to a total dose of 50 Gy in 2 Gy fractions via IMRT. We will begin treatment planning on Saturday, and no contrast will be necessary within the CT simulation for we can fuse the radiographic CT of the neck completed 02/10/2020. Furthermore, we will fuse the PET/CT dated 02/13/2020. We discussed radiation logistics, prognosis, the high probability of achieving local control, and potential acute and late side effects associated with treatment. Both the patient and his daughter, Tanya, agreed to proceed with radiation therapy as planned. Signed by: 02/18/2020 12:14:46 PM <<Signature on File>> Time spent with patient: A total of 60 minutes was spent in [id number] time with the patient answering his questions. CPT Code: CPT Code:
--- NOTE | 2020-02-22 | CT_ITS ---
Radiation Therapy Planning CT images; total exam DLP: 728.90 mGy-cm MTDD
== END 2020-02-26 23:59 | disposition home or self-care (01) ==
LOC: ONCMED 06:50
PROVIDERS: PCP Physician Assistant Medical; Visit Provider Radiology Radiation Oncology
DX: C83.38 Diffuse large B-cell lymphoma, lymph nodes of multiple sites (principal); C34.11 Malignant neoplasm of upper lobe, right bronchus or lung; G25.0 Essential tremor; J44.9 Chronic obstructive pulmonary disease, unspecified; I50.9 Heart failure, unspecified; I25.10 Atherosclerotic heart disease of native coronary artery without angina pectoris; K50.90 Crohn's disease, unspecified, without complications; F32.9 Major depressive disorder, single episode, unspecified; E78.5 Hyperlipidemia, unspecified; I25.2 Old myocardial infarction; I11.0 Hypertensive heart disease with heart failure; Z79.01 Long term (current) use of anticoagulants; Z85.46 Personal history of malignant neoplasm of prostate; Z92.3 Personal history of irradiation; Z90.2 Acquired absence of lung [part of]; Z92.21 Personal history of antineoplastic chemotherapy; Z95.1 Presence of aortocoronary bypass graft; Z85.828 Personal history of other malignant neoplasm of skin; Z87.891 Personal history of nicotine dependence
CPT/HCPCS: 77300; 77301; 77334; 77338; 99215

== ENCOUNTER 2020-03-28 05:36 | Outpatient (RCR) | payer MEDICARE, SELFPAY ==
--- NOTE | 2020-03-01 16:25 | ONCRAD TMN_ITS ---
Radiation Oncology Weekly Treatment Management Patient: Lazaro Vásquez MR#: [id number] : 1940> Age: 80> Sex: Male Dictated by: Dr. 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 In 01/[address] of the neck & PET/CT revealed an FDG avid progressive right level 3 neck mass measuring 3.7 x 2.[address] Felton thought that further systemic therapy would not be ideal for this patient. Plan: Involved site radiation therapy to a total dose of 50 Gy in 2 Gy fractions via IMRT to address his refractory disease within the right neck. 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 Surveillance has been negative to date. In addition to surveillance for B Cell Lymphoma, surveillance for lung cancer is prudent with a CT scan of the chest Q6 months. Radiotherapy to date: Course: HN 25FX, Treatment Site: HN 25FX, Ref. ID: [id number], Energy: 6X, Dose/Fx (cGy): 200, #Fx: , Dose Correction (cGy): 0, Total Dose (cGy): 400, Start Date: 02/29/2020, Elapsed Days: 1 Reason for visit: The patient is being seen today as part of their regularly scheduled weekly on treatment visits to assess for acute toxicities for radiotherapy. Interim History: The patient has received 2 fractions of radiotherapy, and he reports no acute side effects from treatment thus far. The patient shares that he has a poor appetite. Current Medications: Acetaminophen, amLODIPine Besylate, aspirin, atorvastatin Calcium, carvedilol, cyclophosphamide, dexamethasone Sodium Phosphate, diphenhydrAMINE HCl, emend, etoposide, ferrous Sulfate, levaquin, losartan Potassium, neulasta Onpro, nystatin, ondansetron HCl, palonosetron HCl, plavix, potassium Chloride, potassium Chloride ER, predniSONE, prochlorperazine Maleate, protonix, protonix, questran, riTUXimab, sodium Chloride, vinCRIStine Sulfate. Allergies: Codeine Sulfate. Current Complaints/Review of Systems: Constitutional - Complains of a poor appetite. Complains of mild fatigue. Complains of change in weight. Denies fever and night sweats. ENMT - Denies dysphagia, ear pain, mouth dryness, stomatitis and altered taste. Neck - Denies neck pain and decreased range of motion. Integumentary - Has no redness to the neck. Vital Signs: Performed on 03/01/2020 9:12 AM BMI - 20.549 kg/m2, Height - 67.00 in, Weight - 131.2 lbs, Temperature - 97.2 f, Pulse - 62, Respiration - 18, O2 Sat - 97 %, Pain - 0 and BP - 131/ 75 mm(hg). Physical Exam: Appears stable, no skin erythema or desquamation. Performance Status: 2 - Ambulatory/capable of all self-care, unable to perform any work activities. Up and about more than 50% of waking hours. (ECOG) Lab: None pending in Radiation Oncology. Test performed on 11/04/2019 12:40 PM Iron - 42 mcg/dl (low), % Iron Saturation - 17.5 % (low), Test performed on 02/09/2020 1:20 PM Potassium - 3.4 mmol/l (low), BUN - 5 mg/dl (low), Creatinine - 0.6 mg/dl (low), Glucose - 122 mg/dl (high), Protein, Total - 5.7 g/dl (low), LDH (Total) - 124 u/l (low) and Test performed on 02/09/2020 2:39 PM Neutrophils - 8.35 10 3/ul (high). Imaging: Radiation therapy imaging related to accurate target localization (i.e. KV, MV and CBCT) was reviewed. Appropriate changes, if any, were made to ensure treatment accuracy. Plan: The patient is tolerating therapy reasonably well. Radiotherapy will continue as planned. CPT: 11341 Signed by: Dr. Zak Franklin>03/01/2020 4:24:04 PM <<Signature on File>>
--- NOTE | 2020-03-08 09:30 | ONCRAD TMN_ITS ---
Radiation Oncology Weekly Treatment Management Patient: Fahad Willis MR#: [id number] : 1940 Age: 80 Sex: Male Dictated by: Dr. 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 In 01/[address] of the neck & PET/CT revealed an FDG avid progressive right level 3 neck mass measuring 3.7 x 2.[address] Felton thought that further systemic therapy would not be ideal for this patient. Plan: Involved site radiation therapy to a total dose of 50 Gy in 2 Gy fractions via IMRT to address his refractory disease within the right neck. 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 Surveillance has been negative to date. In addition to surveillance for B Cell Lymphoma, surveillance for lung cancer is prudent with a CT scan of the chest Q6 months. Radiotherapy to date: Course: HN 25FX, Treatment Site: HN 25FX, Ref. ID: [id number], Energy: 6X, Dose/Fx (cGy): 200, #Fx: , Dose Correction (cGy): 0, Total Dose (cGy): 1,400, Start Date: 02/29/2020, End Date: 03/08/2020, Elapsed Days: 8 Reason for visit: The patient is being seen today as part of their regularly scheduled weekly on treatment visits to assess for acute toxicities from radiotherapy. Interim History: The patient reports minor irritation in his throat, and nausea secondary to his Crohn's disease. Current Medications: Acetaminophen, amLODIPine Besylate, aspirin, atorvastatin Calcium, carvedilol, cyclophosphamide, dexamethasone Sodium Phosphate, diphenhydrAMINE HCl, emend, etoposide, ferrous Sulfate, levaquin, losartan Potassium, neulasta Onpro, nystatin, ondansetron HCl, palonosetron HCl, plavix, potassium Chloride, potassium Chloride ER, predniSONE, prochlorperazine Maleate, protonix, protonix, questran, riTUXimab, sodium Chloride, vinCRIStine Sulfate. Allergies: Codeine Sulfate. Current Complaints/Review of Systems: Constitutional - Complains of lack of appetite and lethargy. ENMT - Complains of dysphagia states it feels like something is hung up in his throat. Neck - Denies decreased range of motion. Integumentary - Denies dry skin and rash. Respiratory - Denies cough and dyspnea. Vital Signs: Performed on 03/08/2020 9:14 AM Temperature - 97.2 f, Pulse - 68, Respiration - 16, O2 Sat - 96 %, Pain - 0 and BP - 126/ 70 mm(hg). Physical Exam: Appears stable, no skin erythema or desquamation. . Palpable neck adenopathy in the right neck seems slightly reduced from the prior week. Lungs are clear to auscultation bilaterally. Performance Status: 2 - Ambulatory/capable of all self-care, unable to perform any work activities. Up and about more than 50% of waking hours. (ECOG) Lab: None pending in Radiation Oncology. Test performed on 11/04/2019 12:40 PM Iron - 42 mcg/dl (low), % Iron Saturation - 17.5 % (low), Test performed on 02/09/2020 1:20 PM Potassium - 3.4 mmol/l (low), BUN - 5 mg/dl (low), Creatinine - 0.6 mg/dl (low), Glucose - 122 mg/dl (high), Protein, Total - 5.7 g/dl (low), LDH (Total) - 124 u/l (low) and Test performed on 02/09/2020 2:39 PM Neutrophils - 8.35 10 3/ul (high). Imaging: Radiation therapy imaging related to accurate target localization (i.e. KV, MV and CBCT) was reviewed. Appropriate changes, if any, were made to ensure treatment accuracy. Plan: The patient is tolerating therapy reasonably well. Radiotherapy will continue as planned. CPT: 07735 Signed by: Dr. Zak Franklin 03/08/2020 9:28:59 AM
--- NOTE | 2020-03-15 10:02 | ONCRAD TMN_ITS ---
Radiation Oncology Weekly Treatment Management Patient: Fahad Willis MR#: [id number] : 1940 Age: 80 Sex: Male Dictated by: Dr. 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 In 01/[address] of the neck & PET/CT revealed an FDG avid progressive right level 3 neck mass measuring 3.7 x 2.[address] Felton thought that further systemic therapy would not be ideal for this patient. Plan: Involved site radiation therapy to a total dose of 50 Gy in 2 Gy fractions via IMRT to address his refractory disease within the right neck. 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 Surveillance has been negative to date. In addition to surveillance for B Cell Lymphoma, surveillance for lung cancer is prudent with a CT scan of the chest Q6 months. Radiotherapy to date: Course: HN 25FX, Treatment Site: HN 25FX, Ref. ID: [id number], Energy:6X, Dose/Fx (cGy): 200, #Fx: , Dose Correction (cGy): 0, Total Dose (cGy): 2,400, Start Date: 02/29/2020, Elapsed Days: 15 Reason for visit: The patient is being seen today as part of their regularly scheduled weekly on treatment visits to assess for acute toxicities from radiotherapy. Interim History: The patient reports improved swallowing, and reduced bulk in his neck. He reports no other complaints. Current Medications: Acetaminophen, amLODIPine Besylate, aspirin, atorvastatin Calcium, carvedilol, cyclophosphamide, dexamethasone Sodium Phosphate, diphenhydrAMINE HCl, emend, etoposide, ferrous Sulfate, levaquin, losartan Potassium, neulasta Onpro, nystatin, ondansetron HCl, palonosetron HCl, plavix, potassium Chloride, potassium Chloride ER, predniSONE, prochlorperazine Maleate, protonix, protonix, questran, riTUXimab, sodium Chloride, vinCRIStine Sulfate. Allergies: Codeine Sulfate. Current Complaints/Review of Systems: Constitutional - Complains of lack of appetite remains about the same moderate to poor, not real good, continues to drink ensures daily, and is eating a little.. Complains of moderate fatigue associated with normal activity. Denies fever, lethargy, night sweats, rigors / chills and change in weight. ENMT - Complains of dysphagia reports that this is better than last week. States that he feels like the lump in his throat is smaller, not as hard to swallow.. Denies ear pain, epistaxis, problems with hearing, mouth dryness, oral bleeding, sputum production, stomatitis, altered taste and tinnitus. Vital Signs: Performed on 03/15/2020 9:12 AM BMI - 20.518 kg/m2, Height - 67.00 in, Weight - 131.0 lbs, Temperature - 97.8 f, Pulse - 68, Respiration - 17, O2 Sat - 97 %, Pain - 0, Fatigue - 6 and BP - 130/ 60 mm(hg)(/low). Physical Exam: Appears stable, no skin erythema or desquamation. Performance Status: 2 - Ambulatory/capable of all self-care, unable to perform any work activities. Up and about more than 50% of waking hours. (ECOG) Lab: None pending in Radiation Oncology. Test performed on 11/04/2019 12:40 PM Iron - 42 mcg/dl (low), % Iron Saturation - 17.5 % (low), Test performed on 02/09/2020 1:20 PM Potassium - 3.4 mmol/l (low), BUN - 5 mg/dl (low), Creatinine - 0.6 mg/dl (low), Glucose - 122 mg/dl (high), Protein, Total - 5.7 g/dl (low), LDH (Total) - 124 u/l (low) and Test performed on 02/09/2020 2:39 PM Neutrophils - 8.35 10 3/ul (high). Imaging: Radiation therapy imaging related to accurate target localization (i.e. KV, MV and CBCT) was reviewed. Appropriate changes, if any, were made to ensure treatment accuracy. Plan: The patient is tolerating therapy reasonably well. Radiotherapy will continue as planned. CPT: 87245 Signed by: Dr. Zak Franklin 03/15/2020 10:00:32 AM
--- NOTE | 2020-03-22 13:23 | ONCRAD TMN_ITS ---
Radiation Oncology Weekly Treatment Management Patient: Fahad Willis MR#: [id number] : 1940 Age: 80 Sex: Male Dictated by: Dr. 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 In 01/[address] of the neck & PET/CT revealed an FDG avid progressive right level 3 neck mass measuring 3.7 x 2.[address] Felton thought that further systemic therapy would not be ideal for this patient. Plan: Involved site radiation therapy to a total dose of 50 Gy in 2 Gy fractions via IMRT to address his refractory disease within the right neck. 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 Surveillance has been negative to date. In addition to surveillance for B Cell Lymphoma, surveillance for lung cancer is prudent with a CT scan of the chest Q6 months. Radiotherapy to date: Course: HN 25FX, Treatment Site: HN 25FX, Ref. ID: [id number], Energy: 6X, Dose/Fx (cGy): 200, #Fx: , Dose Correction (cGy): 0, Total Dose (cGy): 3,400, Start Date: 02/29/2020, Elapsed Days: 22 Reason for visit: The patient is being seen today as part of their regularly scheduled weekly on treatment visits to assess for acute toxicities from radiotherapy. Interim History: The patient reports mild odynophagia, but he reports no aspiration. His weight is stable, and he has been supplementing his meals with Ensure. Current Medications: Acetaminophen, amLODIPine Besylate, aspirin, atorvastatin Calcium, carvedilol, cyclophosphamide, dexamethasone Sodium Phosphate, diphenhydrAMINE HCl, emend, etoposide, ferrous Sulfate, levaquin, losartan Potassium, neulasta Onpro, nystatin, ondansetron HCl, palonosetron HCl, plavix, potassium Chloride, potassium Chloride ER, predniSONE, prochlorperazine Maleate, protonix, protonix, questran, riTUXimab, sodium Chloride, vinCRIStine Sulfate. Allergies: Codeine Sulfate. Current Complaints/Review of Systems: Constitutional - Complains of lack of appetite. Complains of mild fatigue. Denies fever, night sweats and change in weight. ENMT - Complains of altered taste. Denies dysphagia but has odynophagia, ear pain, mouth dryness and stomatitis. Neck - Complains of decreased range of motion slightly on the right side. Denies neck pain. Integumentary - Has slight redness to the neck. Vital Signs: Performed on 03/22/2020 9:08 AM BMI - 20.518 kg/m2, Height - 67.00 in, Weight - 131.0 lbs, Temperature - 97.6 f, Pulse - 75, Respiration - 18, O2 Sat - 98 %, Pain - 0 and BP - 138/ 58 mm(hg)(/low). Physical Exam: Moderate neck erythema is appreciated, there is no oral mucositis. Performance Status: 2 - Ambulatory/capable of all self-care, unable to perform any work activities. Up and about more than 50% of waking hours. (ECOG) Lab: None pending in Radiation Oncology. Imaging: Radiation therapy imaging related to accurate target localization (i.e. KV, MV and CBCT) was reviewed. Appropriate changes, if any, were made to ensure treatment accuracy. Plan: The patient is tolerating therapy reasonably well. Radiotherapy will continue as planned. CPT: 10336 Signed by: Dr. Zak Franklin 03/22/2020 1:23:00 PM
== END 2020-03-28 23:59 | disposition home or self-care (01) ==
LOC: ONCMED 05:36
PROVIDERS: PCP Physician Assistant Medical; Visit Provider Radiology Radiation Oncology
DX: Z51.0 Encounter for antineoplastic radiation therapy (principal); C83.38 Diffuse large B-cell lymphoma, lymph nodes of multiple sites; C34.11 Malignant neoplasm of upper lobe, right bronchus or lung; D50.8 Other iron deficiency anemias; Z90.2 Acquired absence of lung [part of]; Z79.899 Other long term (current) drug therapy
CPT/HCPCS: 77336; 77386

== ENCOUNTER 2020-04-01 06:00 | Outpatient (RCR) | payer MEDICARE, SELFPAY ==
--- NOTE | 2020-03-29 14:42 | ONCRAD TMN_ITS ---
Radiation Oncology Weekly Treatment Management Patient: Fahad Willis MR#: [id number] : 1940 Age: 80 Sex: Male Dictated by: Dr. 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 In 01/[address] of the neck & PET/CT revealed an FDG avid progressive right level 3 neck mass measuring 3.7 x 2.[address] Felton thought that further systemic therapy would not be ideal for this patient. Plan: Involved site radiation therapy to a total dose of 50 Gy in 2 Gy fractions via IMRT to address his refractory disease within the right neck. 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 Surveillance has been negative to date. In addition to surveillance for B Cell Lymphoma, surveillance for lung cancer is prudent with a CT scan of the chest Q6 months. Radiotherapy to date: Course: HN 25FX, Treatment Site: HN 25FX, Ref. ID: [id number], Energy: 6X, Dose/Fx (cGy): 200, #Fx: , Dose Correction (cGy): 0, Total Dose (cGy): 4,400, Start Date: 02/29/2020, Elapsed Days: 29 Reason for visit: The patient is being seen today as part of their regularly scheduled weekly on treatment visits to assess for acute toxicities from radiotherapy. Interim History: The patient complains of a poor appetite and mild-moderate odynophagia, yet his weight is stable. He has mild dry mouth, and mild dysgeusia. Current Medications: Acetaminophen, amLODIPine Besylate, aspirin, atorvastatin Calcium, carvedilol, cyclophosphamide, dexamethasone Sodium Phosphate, diphenhydrAMINE HCl, emend, etoposide, ferrous Sulfate, levaquin, losartan Potassium, neulasta Onpro, nystatin, ondansetron HCl, palonosetron HCl, plavix, potassium Chloride, potassium Chloride ER, predniSONE, prochlorperazine Maleate, protonix, protonix, questran, riTUXimab, sodium Chloride, vinCRIStine Sulfate. Allergies: Codeine Sulfate. Current Complaints/Review of Systems: Constitutional - Complains of a poor appetite. Denies fatigue, fever, night sweats and change in weight. ENMT - Complains of mouth dryness and altered taste. Denies dysphagia but has odynophagia, ear pain and stomatitis. Neck - Denies neck pain. Integumentary - Has dry desquamation to the neck. Vital Signs: Performed on 03/29/2020 9:25 AM BMI - 20.643 kg/m2, Height - 67.00 in, Weight - 131.8 lbs, Temperature - 97.6 f, Pulse - 97.6, Respiration - 58, O2 Sat - 97 %, Pain - 0 and BP - 121/ 72 mm(hg). Physical Exam: Dry desquamation is appreciated. Performance Status: 2 - Ambulatory/capable of all self-care, unable to perform any work activities. Up and about more than 50% of waking hours. (ECOG) Lab: None pending in Radiation Oncology. Test performed on 11/04/2019 12:40 PM Iron - 42 mcg/dl (low), % Iron Saturation - 17.5 % (low), Test performed on 02/09/2020 1:20 PM Potassium - 3.4 mmol/l (low), BUN - 5 mg/dl (low), Creatinine - 0.6 mg/dl (low), Glucose - 122 mg/dl (high), Protein, Total - 5.7 g/dl (low), LDH (Total) - 124 u/l (low) and Test performed on 02/09/2020 2:39 PM Neutrophils - 8.35 10 3/ul (high). Imaging: Radiation therapy imaging related to accurate target localization (i.e. KV, MV and CBCT) was reviewed. Appropriate changes, if any, were made to ensure treatment accuracy. Plan: The patient is tolerating therapy reasonably well. Radiotherapy will continue as planned. Patient was encouraged to use Aquaphor. Instructions for Domeboro use were given in the event that his dry desquamation turns into the moist desquamation. CPT: 26721 Signed by: Dr. Zak Franklin 03/29/2020 2:41:26 PM
== END 2020-04-27 23:59 | disposition home or self-care (01) ==
LOC: ONCMED 06:00
PROVIDERS: PCP Physician Assistant Medical; Visit Provider Radiology Radiation Oncology
DX: Z51.0 Encounter for antineoplastic radiation therapy (principal); C34.11 Malignant neoplasm of upper lobe, right bronchus or lung; C83.38 Diffuse large B-cell lymphoma, lymph nodes of multiple sites; D50.9 Iron deficiency anemia, unspecified
CPT/HCPCS: 77336; 77386

== ENCOUNTER 2020-05-04 11:19 | Outpatient (RCR) | payer MEDICARE, SELFPAY ==
--- NOTE | 2020-05-04 11:21 | CT_ITS ---
WS: [id number] CT NECK WITH CONTRAST HISTORY: RESTAGING LARGE B CELL LYMPHOMA, LUNG CANCER TECHNIQUE: Contiguous 5 mm axial images are performed through the neck with intravenous contrast. Sag ittal and coronal reformats are also submitted. All CT scans at [facility] use at least o ne of these dose optimization techniques: automated exposure control; mA and/or kV adjustment per pat ient size (includes targeted exams where dose is matched to clinical indication); or iterative recons truction. CONTRAST: CONTRAST: Omnipaque 300; 95 mL IV. DLP: 1729.53 mGycm COMPARISON: PET/CT 02/13/2020. Nasopharynx, oropharynx, hypopharynx and larynx are unremarkable. No soft tissue masses or abnormal e nhancement. Torus tubarius and fossa of Rosenmuller and parapharyngeal fat are normal. 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 There is residual ill-defined soft tissue measuring 2.1 x 1.1 cm that extends from level IIb to level III. There is mild infiltration of the adjacent soft tissue fat. No new or worsen ing adenopathy. Thyroid gland and salivary glands are normally enhancing with no masses. Mild spondylitic changes. No osteoblastic or osteolytic disease. Visualized portions of the skull base demonstrate no abnormalities. Orbits and globes are within norm al limits. No soft tissue masses. Visualized paranasal sinuses and mastoid air cells are normal. Again noted is the groundglass nodule in the LEFT upper lobe 1.6 cm. No interval change in size. Note d to be mildly positive on the PET/CT. CT/CT neck w con* [id number] IMPRESSION: 1. Significant decrease in size of the RIGHT neck cervical chain lymphadenopat hy. Residual soft tissue measures 2.1 x 1.1 cm. 2. Unchanged groundglass nodule LEFT upper lobe 1.6 cm.
[2020-05-04 12:23] LABS: Blood Urea Nitrogen 8 mg/dL (8-23)
[2020-05-04] MEDS: iohexol 300 mg/mL 100 mL Btl IV (12:36)
== END 2020-05-28 23:59 | disposition home or self-care (01) ==
LOC: RADWPI 11:19
PROVIDERS: PCP Physician Assistant Medical; Visit Provider Radiology Radiation Oncology
DX: C83.38 Diffuse large B-cell lymphoma, lymph nodes of multiple sites (principal); C34.11 Malignant neoplasm of upper lobe, right bronchus or lung
CPT/HCPCS: 70491; 82565; 84520; Q9967

== ENCOUNTER 2020-08-16 15:00 | Outpatient (CLI) | payer MEDICARE, SELFPAY ==
--- NOTE | 2020-08-20 12:23 | ONC FU_ITS ---
Dr. Felton Patient Follow-Up Note Patient: Lazaro Vásquez Unit #: [id number]: 1940 Dicatated By: José Manuel Felton M.D.Date of Visit:Aug 16, 2020 Onc Med Follow-up/Prog Note Chief Complaint: Lymphoma. 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 He has a history of Crohn's disease, for which he had been on treatment with Remicade. 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 There was no invasion of pleural effusions and all margins were free. There was no involvement in 5 peribronchial lymph nodes and no involvement in a total of 8 mediastinal lymph nodes. His disease was pathologic stage IA2 (T1b, N0, M0). He received no additional treatment. In November 2018 he had presented with an enlarged lymph node on the right side of the neck. According to his 's description, it came up very quickly. Neck CT on 12/11/2018 showed a well circumcised mass at level IIA on the right side measuring 2.8 x 2.0 x 3.3 cm. There was no adjacent lymphadenopathy noted. Surveillance chest CT on 01/21/2019 showed complete atelectasis of the right middle lobe, new from previous studies. A mixed soft tissue and groundglass pulmonary nodule within the left upper lobe was not significantly changed measuring 1.7 x 1.2 cm. There were no pathologically enlarged thoracic lymph nodes. Further evaluation with PET/CT showed marked increase in metabolic activity in the right neck mass, SUV 16.82. Multiple small right paratracheal lymph nodes were present extending to the pretracheal area with maximum SUV 2.40. An extensive right upper anterolateral mediastinal tissue mass showed marked increase metabolic activity, SUV 8.98. Right level II and III axillary lymph nodes also demonstrated increased metabolic activity. There was no pulmonary nodularity or focal increase of metabolic activity noted. A marked focus of increased metabolic activity was noted in the cecum corresponding to solid soft tissue, maximum SUV 9.0. The uptake in the neck mass, mediastinal lymph nodes, and axillary lymph nodes was felt to be consistent with metastatic involvement. The significance of the uptake in the cecum was not mentioned. He underwent excisional biopsy of the right neck mass on 03/03/2019. Pathology was consistent with diffuse large B-cell lymphoma. The B cells were CD30 positive and MUM-1 negative, consistent with germinal center subtype. I had seen him initially on 03/19/2019. I reviewed options for treatment. He was agreeable to begin a trial of chemotherapy with R-CEOP. In addition, I had a discussion with his automotive welder, Dr. Isaías Patino, and he was agreeable to stopping the Remicade. He began cycle 1 of R-CEOP on 04/14/2019. He was able to tolerated with acceptable toxicity, and he proceeded with cycle 2 on 05/06/2019. Restaging PET/CT on 05/23/2019 showed a region of activity in the subcutaneous posterior triangle on the right side of the neck measuring 9 mm with SUV 5.5, suspicious for residual malignancy. There were no other sites of abnormal uptake. A left upper lobe pulmonary nodule was FDG negative. Activity at the cecal anastomosis appeared physiological. He proceeded with cycle 3 of R-CEOP on 06/01/2019. On 06/22/2019 he had presented to the emergency room in [place] with epistaxis and hemoptysis. His blood counts were adequate. He was transferred to [facility] in [place] for admission. On evaluation, which included bronchoscopy, he was determined to have pneumonia. He was discharged home on antibiotic therapy and the pulmonary nebulizer. I had seen him for a follow-up visit on 07/07/2019. I did opt to delay his chemotherapy, as he was still recovering from the pneumonia. He then returned to complete his 4th cycle of R-CEOP on 07/15/2019. Restaging PET/CT on 08/08/2019 showed no evidence of active malignancy. The left upper lobe groundglass pulmonary nodule remained FDG negative. He was then followed on observation/expectant management. In January 2020 had presented with a palpable mass on the right side of the neck. Restaging CT of the neck on 02/10/2020 showed a right sided level III jeffrey mass with somewhat ill-defined margins measuring 3.7 x 2.5 x 5 cm. It was noted to have increased from the November 2018 study. Restaging PET/CT on 02/13/2020 showed new FDG avid right cervical level II lymph node measuring 4.4 x 2.4 cm, SUV 20.9, consistent with recurrent lymphoma. A second 6 mm node in the right level III territory at SUV 6.0, also consistent with lymphoma. The left upper lobe groundglass opacity appeared unchanged. He was treated with involved field radiation, completed on 04/01/2020 to a total dose of [address] of the neck on 05/04/2020 showed ill-defined soft tissue measuring 2.1 x 1.2 cm in the right cervical chain extending from level IIB to level III. There was no other adenopathy noted on that study. His medical history is also significant for hypertension, dyslipidemia, and coronary artery disease with ischemic cardiomyopathy and congestive heart failure. Other medical illnesses include COPD, esophageal dysmotility, benign essential tremor, and glaucoma. He has a history of nephrolithiasis. He has a history of smoking 1 pack of cigarettes daily for 50 years. He has cut down to 2 or 3 cigarettes per day. INTERIM HISTORY: Restaging PET/CT on 08/13/2020 showed no suspicious adenopathy to suggest recurrence of lymphoma. There was minimal FDG uptake noted in a mixed groundglass/solid left upper lobe pulmonary nodule measuring 1.2 cm. It was felt to be suspicious for malignancy, though the SUV was only 1.5. He is seen for a follow-up visit. He says he has been feeling pretty good. His energy is not too bad, but he still has very limited activity. ECOG score is 2. He has had good appetite. He has no fever or night sweats. He still has some slight soreness in the throat and a little difficulty swallowing. He has no shortness of breath, cough, or chest pain. He has some ongoing bowel issues associated with his Crohn's disease, but they are not getting any worse since he has been off treatment. He has no other GI or complaints. He colonel he has no significant joint or bone pain. He does not complain of headache. He does have some dizziness. He has numbness/tingling in his feet. Medications: amLODIPine Besylate 1 (10 mg) Tablet Oral daily, Aspirin 1 (81 mg) Tablet Oral daily, Atorvastatin Calcium 1 (20 mg) Tablet Oral daily, Carvedilol 1 (3.125 mg) Tablet Oral b.i.d., Ferrous Sulfate 1 Tablet (of 325 (65 fe) mg) Tablet, enteric coated Oral daily, Levaquin 20 mL Liquid Oral daily for 10 days, Losartan Potassium 1 (50 mg) Tablet Oral daily, Plavix 1 (75 mg) Tablet Oral daily, Protonix 1 Tablet (of 40 mg) Tablet, enteric coated Oral daily, Questran 4 (4 g/dose) Powder Oral PRN Allergies: Codeine Sulfate Vital Signs: Performed on Aug 16, 2020 13:37 Height - 67.00 in Weight - 134 lbs (HIGH) BSA - 1.71 sq.m BMI - 20.99 Temperature - 97.7 F (LOW) Pulse - 83 /min Respiration - 17 /min BP - 140/70 mm(hg) O2 Sat - 96 % Pain - 0 Physical Examination: Constitutional - He appears somewhat weak generally, Eyes - Sclerae nonicteric. Conjunctivae clear, ENMT - No lesions noted in the oral cavity, Hematologic/Lymphatic - I did not feel any cervical, clavicular, or axillary lymphadenopathy, Respiratory - Lungs sound clear with diminished air movement bilaterally, Cardiovascular - Heart rhythm is irregular. The rate is controlled. There is no murmur, gallop, or rub noted, Abdomen - Soft. Liver and spleen are not enlarged. There is no abdominal mass or ascites noted. There is a left inguinal hernia present. There is no inguinal adenopathy noted, Extremities - No edema. He has chronic purpura, Integumentary - There is a very prominent actinic lesion on the helix of the right ear and another actinic lesion in the postauricular area. There are multiple actinic lesions on the scalp and in the left bahai. Some of these are very prominent and could be squamous cell cancers, Neurologic - No focal neurologic deficits noted. Lab/Imaging: Test performed on Aug 15, 2020 08:14 Glucose 99 mg/dL BUN 8 mg/dL Creatinine 0.83 mg/dL Cr Clearance (Est) 56.47 mL/min Sodium 139 mmol/L Potassium 4.0 mmol/L Chloride 104 mmol/L CO2 28 mmol/L Calcium 9.3 mg/dL Protein, Total 6.0 g/dL Albumin 3.3 g/dL Bilirubin, Total 0.4 mg/dL Alkaline Phosphatase 112 IU/L AST (SGOT) 10 IU/L ALT (SGPT) 7 IU/L WBC 9.0 10^9/L RBC 4.86 10^12/L HGB 13.7 g/dL HCT 44.8 % MCV 92.2 fl MCH 28.2 pg MCHC 30.6 g/dL RDW 14.3 % Platelet Count 204 10^9/L MPV 10.5 fL Neutrophils (Gran) 6.81 10^9/L Lymphocytes 1.23 10^9/L Monocytes 0.77 10^9/L Eosinophils 0.08 10^9/L Basophils 0.02 10^9/L Manual Lymphocytes 14 % Manual Monocytes 9 % Manual Eosinophils 1 % Manual Basophils 0 % Problem List: 1. Diffuse large B-cell lymphoma, germinal center subtype. By clinical evaluation, he had at least stage II disease. His IPI score with stage II disease and normal LDH was 2, low-intermediate risk. He was treated with 4 cycles of R-CEOP chemotherapy from 04/14/2019 thru 07/15/2019. He had a complete response by PET/CT. 2. There was also PET/CT evidence of FDG uptake in the area of the cecum, clinical significance of which was uncertain. 3. 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 4. He has Crohn's disease for which he had been on long-term treatment with Remicade. It was stopped with diagnosis of his lymphoma. 5. Hypertension. 6. Dyslipidemia. 7. Coronary artery disease with ischemic cardiomyopathy and congestive heart failure. 8. COPD. 9. Esophageal dysmotility. 10. Benign essential tremor. 11. History of nephrolithiasis. 12. Glaucoma. Problems Addressed with this Encounter and Plan: 1. Diffuse large B-cell lymphoma, germinal center subtype. By clinical evaluation, he had at least stage II disease at initial diagnosis in February 2019. He had complete response by PET/CT to initial chemotherapy with 4 cycles of R-C EOP, completed in June 2019. He had PET/CT evidence of recurrence in the right side of the neck in January 2020. He was treated with involved field radiation, completed on 04/01/2020 to a total dose of 5000 cGy. His repeat neck CT on 05/04/2020 showed residual ill-defined soft tissue in the right cervical chain measuring 2.1 x 1.2 cm. Restaging PET/CT on 08/13/2020 showed no suspicious adenopathy to suggest recurrence of lymphoma. There was minimal FDG uptake noted in a mixed groundglass/solid left upper lobe pulmonary nodule measuring 1.2 cm. It was felt to be suspicious for malignancy, though the SUV was only 1.5. He has been feeling pretty good, though he continues to have limited activity. He has no residual palpable neck mass and based on the PET/CT findings his lymphoma appears to be in remission. As such, he will now continue on observation/expectant management. He will be scheduled for a follow-up in 3 months. He will have restaging CT scans with that visit, particularly in view of the lung findings on the PET/CT. 2. 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 He is being followed on observation. He requires ongoing surveillance, has noted above. 3. He has multiple prominent actinic lesions in the head/facial area, some of which are very prominent and may be squamous cell cancers. I will get him scheduled to see a collar tacker. Signed By: José aMnuel Felton M.D. <<Signature on File>>
== END 2020-08-16 15:01 | disposition home or self-care (01) ==
LOC: ONCMED 08-17 10:37
PROVIDERS: PCP Physician Assistant Medical; Visit Provider Internal Medicine Medical Oncology
DX: C83.38 Diffuse large B-cell lymphoma, lymph nodes of multiple sites (principal); C34.11 Malignant neoplasm of upper lobe, right bronchus or lung; D50.9 Iron deficiency anemia, unspecified; E87.6 Hypokalemia; K50.90 Crohn's disease, unspecified, without complications; I10 Essential (primary) hypertension; E78.5 Hyperlipidemia, unspecified; I25.10 Atherosclerotic heart disease of native coronary artery without angina pectoris; I25.5 Ischemic cardiomyopathy; I50.9 Heart failure, unspecified; J44.9 Chronic obstructive pulmonary disease, unspecified; K22.4 Dyskinesia of esophagus; G25.0 Essential tremor; N20.0 Calculus of kidney; H40.9 Unspecified glaucoma; Z79.899 Other long term (current) drug therapy
CPT/HCPCS: 99214

== ENCOUNTER 2020-11-03 12:16 | Outpatient (CLI) | payer MEDICARE, SELFPAY ==
[2020-11-03 14:51] LABS: Basophils % 0.3 %; Eosinophils # 0.1 10^3/uL (0.0-0.8); Eosinophils % 0.9 %; Hemoglobin 13.6 g/dL (11.7-16.6); Lymphocytes # 1.1 10^3/uL (0.8-4.8); Lymphocytes % 12.6 %; Mean Corpuscular HGB Conc 30.9 g/dL (30.0-36.0); Mean Corpuscular Hemoglobin 28.3 pg (28.0-34.0); Mean Corpuscular Volume 91.7 fL (80-94); Mean Platelet Volume 11.5 fL (7.4-10.4); Monocytes # 0.7 10^3/uL (0.2-0.9); Monocytes % 8.4 %; Neutrophils # 6.61 10^3/uL (1.8-7.7); Nucleated Red Blood Cells % 0 %; Platelet Count 221 10^3/cmm (130-400); White Blood Count 8.6 10^3/uL (4.0-10.0)
[2020-11-03 15:28] LABS: Alanine Aminotransferase < 5 U/L (0-41); Albumin Level 3.4 g/dL (3.5-5.2); Alkaline Phosphatase 108 IU/L (40-130); Anion Gap 12.5 (5-19); Aspartate Amino Transferase 9 U/L (0-40); Blood Urea Nitrogen 8 mg/dL (8-23); Calcium 8.7 mg/dL (8.5-10.5); Carbon Dioxide 27 mmol/L (22-29); Chloride 104 mmol/L (98-107); Globulin 2.4 g/dL (1.3-4.6); Glucose 110 mg/dL (65-115); Lactate Dehydrogenase 99 U/L (135-225); Osmolality Calculated 289 mOsm/kg (285-295); Potassium 3.5 mmol/L (3.5-5.1); Sodium 140 mmol/L (136-145); Total Bilirubin 0.3 mg/dL (0.15-1.2); Total Protein 5.8 g/dL (6.6-8.7)
== END 2020-11-03 12:17 | disposition home or self-care (01) ==
LOC: ONCMED 11-04 09:00
PROVIDERS: PCP Physician Assistant Medical; Visit Provider Internal Medicine Medical Oncology
DX: C83.38 Diffuse large B-cell lymphoma, lymph nodes of multiple sites (principal)
CPT/HCPCS: 80053; 83615; 85025

== ENCOUNTER 2020-11-08 13:28 | Outpatient (CLI) | payer MEDICARE, SELFPAY ==
--- NOTE | 2020-11-08 17:39 | ONC FU_ITS ---
Dr. Felton Patient Follow-Up Note Patient: Lazaro Vásquez Unit #: [id number]: [id number] Dicatated By: José Manuel Felton M.D.Date of Visit:Nov 08, 2020 Onc Med Follow-up/Prog Note Chief Complaint: Lymphoma/lung cancer. 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 He has a history of Crohn's disease, for which he had been on treatment with Remicade. 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 There was no invasion of pleural effusions and all margins were free. There was no involvement in 5 peribronchial lymph nodes and no involvement in a total of 8 mediastinal lymph nodes. His disease was pathologic stage IA2 (T1b, N0, M0). He received no additional treatment. In November 2018 he had presented with an enlarged lymph node on the right side of the neck. According to his 's description, it came up very quickly. Neck CT on 12/11/2018 showed a well circumcised mass at level IIA on the right side measuring 2.8 x 2.0 x 3.3 cm. There was no adjacent lymphadenopathy noted. Surveillance chest CT on 01/21/2019 showed complete atelectasis of the right middle lobe, new from previous studies. A mixed soft tissue and groundglass pulmonary nodule within the left upper lobe was not significantly changed measuring 1.7 x 1.2 cm. There were no pathologically enlarged thoracic lymph nodes. Further evaluation with PET/CT showed marked increase in metabolic activity in the right neck mass, SUV 16.82. Multiple small right paratracheal lymph nodes were present extending to the pretracheal area with maximum SUV 2.40. An extensive right upper anterolateral mediastinal tissue mass showed marked increase metabolic activity, SUV 8.98. Right level II and III axillary lymph nodes also demonstrated increased metabolic activity. There was no pulmonary nodularity or focal increase of metabolic activity noted. A marked focus of increased metabolic activity was noted in the cecum corresponding to solid soft tissue, maximum SUV 9.0. The uptake in the neck mass, mediastinal lymph nodes, and axillary lymph nodes was felt to be consistent with metastatic involvement. The significance of the uptake in the cecum was not mentioned. He underwent excisional biopsy of the right neck mass on 03/03/2019. Pathology was consistent with diffuse large B-cell lymphoma. The B cells were CD30 positive and MUM-1 negative, consistent with germinal center subtype. I had seen him initially on 03/19/2019. I reviewed options for treatment. He was agreeable to begin a trial of chemotherapy with R-CEOP. In addition, I had a discussion with his concrete craftsman, Dr. Isaías Patino, and he was agreeable to stopping the Remicade. He began cycle 1 of R-CEOP on 04/14/2019. He was able to tolerated with acceptable toxicity, and he proceeded with cycle 2 on 05/06/2019. Restaging PET/CT on 05/23/2019 showed a region of activity in the subcutaneous posterior triangle on the right side of the neck measuring 9 mm with SUV 5.5, suspicious for residual malignancy. There were no other sites of abnormal uptake. A left upper lobe pulmonary nodule was FDG negative. Activity at the cecal anastomosis appeared physiological. He proceeded with cycle 3 of R-CEOP on 06/01/2019. On 06/22/2019 he had presented to the emergency room in [place] with epistaxis and hemoptysis. His blood counts were adequate. He was transferred to [facility] in [place] for admission. On evaluation, which included bronchoscopy, he was determined to have pneumonia. He was discharged home on antibiotic therapy and the pulmonary nebulizer. I had seen him for a follow-up visit on 07/07/2019. I did opt to delay his chemotherapy, as he was still recovering from the pneumonia. He then returned to complete his 4th cycle of R-CEOP on 07/15/2019. Restaging PET/CT on 08/08/2019 showed no evidence of active malignancy. The left upper lobe groundglass pulmonary nodule remained FDG negative. He was then followed on observation/expectant management. In January 2020 had presented with a palpable mass on the right side of the neck. Restaging CT of the neck on 02/10/2020 showed a right sided level III jeffrey mass with somewhat ill-defined margins measuring 3.7 x 2.5 x 5 cm. It was noted to have increased from the November 2018 study. Restaging PET/CT on 02/13/2020 showed new FDG avid right cervical level II lymph node measuring 4.4 x 2.4 cm, SUV 20.9, consistent with recurrent lymphoma. A second 6 mm node in the right level III territory at SUV 6.0, also consistent with lymphoma. The left upper lobe groundglass opacity appeared unchanged. He was treated with involved field radiation, completed on 04/01/2020 to a total dose of [address] of the neck on 05/04/2020 showed ill-defined soft tissue measuring 2.1 x 1.2 cm in the right cervical chain extending from level IIB to level III. There was no other adenopathy noted on that study. He was then followed on observation/expectant management. His medical history is also significant for hypertension, dyslipidemia, and coronary artery disease with ischemic cardiomyopathy and congestive heart failure. Other medical illnesses include COPD, esophageal dysmotility, benign essential tremor, and glaucoma. He has a history of nephrolithiasis. He has a history of smoking 1 pack of cigarettes daily for 50 years. He has cut down to 2 or 3 cigarettes per day. INTERIM HISTORY: Restaging PET/CT on 08/13/2020 showed no suspicious adenopathy to suggest recurrence of lymphoma. There was minimal FDG uptake noted in a mixed groundglass/solid left upper lobe pulmonary nodule measuring 1.2 cm. It was felt to be suspicious for malignancy, though the SUV was only 1.5. At his follow-up visit on 08/16/2020 he appeared stable clinically, but he was noted to have multiple actinic skin lesions, and he was then scheduled to see a rougher machine operator. He is seen for a follow-up visit. He has been feeling okay, though not really good. He says his energy is not that bad. He is able to do light housework. ECOG score is 1. His appetite was pretty good, but lately it has declined. He has gained weight, though. He does not have fever or night sweats. His main complaint is that he feels dizzy, as if he is off balance or not tracking. Thus far he has not had any falls. He has some shortness of breath, but is breathing is not bad. He does not complain of cough and he is not been having chest pain. His bowel function has been so-so. He does have diarrhea with the Crohn's disease, but he is managing it adequately with cholestyramine. He has no other GI or complaints. He has no significant joint or bone pain. He does not complain of headache. He has a little bit of numbness/tingling in his feet. He has no other focal neurologic symptoms. Medications: amLODIPine Besylate 1 (10 mg) Tablet Oral daily, Aspirin 1 (81 mg) Tablet Oral daily, Atorvastatin Calcium 1 (20 mg) Tablet Oral daily, Carvedilol 1 (3.125 mg) Tablet Oral b.i.d., Ferrous Sulfate 1 Tablet (of 325 (65 fe) mg) Tablet, enteric coated Oral daily, Levaquin 20 mL Liquid Oral daily for 10 days, Losartan Potassium 1 (50 mg) Tablet Oral daily, Plavix 1 (75 mg) Tablet Oral daily, Prochlorperazine Maleate 1 (5 mg) Tablet Oral t.i.d. PRN, Protonix 1 Tablet (of 40 mg) Tablet, enteric coated Oral daily, Questran 4 (4 g/dose) Powder Oral PRN Allergies: Codeine Sulfate Vital Signs: Performed on Nov 08, 2020 13:32 Height - 67.00 in Weight - 138 lbs (HIGH) BSA - 1.73 sq.m BMI - 21.61 Temperature - 97.6 F (LOW) Pulse - 69 /min Respiration - 16 /min BP - 144/62 mm(hg) (HIGH) O2 Sat - 97 % Pain - 0 Physical Examination: Constitutional - He appears somewhat weak generally, Eyes - Sclerae nonicteric. Conjunctivae clear, ENMT - No lesions noted in the oral cavity, Hematologic/Lymphatic - There is no cervical, clavicular, or axillary adenopathy noted, Respiratory - Lungs sound clear with diminished air movement bilaterally, Cardiovascular - Heart rhythm is irregular. There is no murmur, gallop, or rub noted, Abdomen - Soft. Liver and spleen are not enlarged. There is no abdominal mass or ascites noted. There is no inguinal adenopathy noted, Extremities - Slight edema. He has chronic purpura, Integumentary - There is a very prominent keratotic lesion on the forehead. There are smaller actinic lesions in the right postauricular area and on both sides of the neck. There appears to be recurrence of an actinic lesion on the helix of the right ear, Neurologic - No focal neurologic deficits noted. Lab/Imaging: CBC shows hemoglobin 13.6 g, white blood cell count 8600, and platelet count 221,000. Comprehensive metabolic profile is unremarkable except for slightly low albumin at 3.4 g/dL. LDH is normal at 99 U/L. Problem List: 1. Diffuse large B-cell lymphoma, germinal center subtype. By clinical evaluation, he had at least stage II disease. His IPI score with stage II disease and normal LDH was 2, low-intermediate risk. He was treated with 4 cycles of R-CEOP chemotherapy from 04/14/2019 thru 07/15/2019. He had a complete response by PET/CT. 2. There was also PET/CT evidence of FDG uptake in the area of the cecum, clinical significance of which was uncertain. 3. 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 4. He has Crohn's disease for which he had been on long-term treatment with Remicade. It was stopped with diagnosis of his lymphoma. 5. Hypertension. 6. Dyslipidemia. 7. Coronary artery disease with ischemic cardiomyopathy and congestive heart failure. 8. COPD. 9. Esophageal dysmotility. 10. Benign essential tremor. 11. History of nephrolithiasis. 12. Glaucoma. Problems Addressed with this Encounter and Plan: 1. Patient with diffuse large B-cell lymphoma, germinal center subtype. By clinical evaluation, he had at least stage II disease at initial diagnosis in February 2019. He had complete response by PET/CT to initial chemotherapy with 4 cycles of R-C EOP, completed in June 2019. He had PET/CT evidence of recurrence in the right side of the neck in January 2020. He was treated with involved field radiation, completed on 04/01/2020 to a total dose of 5000 cGy. His repeat neck CT on 05/04/2020 showed residual ill-defined soft tissue in the right cervical chain measuring 2.1 x 1.2 cm. Restaging PET/CT on 08/13/2020 showed no suspicious adenopathy to suggest recurrence of lymphoma. There was minimal FDG uptake noted in a mixed groundglass/solid left upper lobe pulmonary nodule measuring 1.2 cm. It was felt to be suspicious for malignancy, though the SUV was only 1.5. During follow-up his overall clinical status has remained stable with no obvious progression of the lymphoma, but he does need to be scheduled for surveillance CT scans, which will include the neck, chest, abdomen, and pelvis. He will have further evaluation as indicated. In the absence of any evidence of recurrence/progression of the lymphoma, I will just plan to see him again in 3 months. 2. 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 He is being followed on observation. He requires ongoing surveillance. 3. He has multiple prominent actinic lesions in the head/facial area, Including a very prominent keratotic lesion on the forehead, multiple smaller actinic lesions, and what appears to be a recurrent actinic lesion on the helix of the right ear at the site of her previous excision. He has been scheduled for follow-up with the rougher machine operator. Signed By: José Manuel Felton M.D. <<Signature on File>>
== END 2020-11-08 13:29 | disposition home or self-care (01) ==
LOC: ONCMED 13:28
PROVIDERS: PCP Physician Assistant Medical; Visit Provider Internal Medicine Medical Oncology
DX: C83.38 Diffuse large B-cell lymphoma, lymph nodes of multiple sites (principal); C34.11 Malignant neoplasm of upper lobe, right bronchus or lung; D50.9 Iron deficiency anemia, unspecified; K50.90 Crohn's disease, unspecified, without complications; I10 Essential (primary) hypertension; E78.5 Hyperlipidemia, unspecified; I25.10 Atherosclerotic heart disease of native coronary artery without angina pectoris; I42.2 Other hypertrophic cardiomyopathy; I50.9 Heart failure, unspecified; J44.9 Chronic obstructive pulmonary disease, unspecified; G25.0 Essential tremor; N20.0 Calculus of kidney; H40.9 Unspecified glaucoma; Z79.899 Other long term (current) drug therapy
CPT/HCPCS: 99214

== ENCOUNTER 2020-11-22 12:58 | Outpatient (CLI) | payer MEDICARE, SELFPAY ==
--- NOTE | 2020-11-22 | CT_ITS ---
WS: [id number] Exam: CT chest abd pel w con* Date/Time of Exam: 11/22/2020 1:31 PM Reason For Exam: DIFFUSED LARGE B-CELL LYMPHOMA DLP: 2280.[address] scans at [facility] use at least one of these dose optimization techniques: automat ed exposure control; mA and/or kV adjustment per patient size (includes targeted exams where dose is matched to clinical indication); or iterative reconstruction. 100 mL of nonionic contrast administere d intravenously. CT scan of the chest. Compared to previous exam 05/08/2018. 2 cm focal infiltrate identified in the upper lobe lower left lung slightly more prominent than noted previously. The remaining lungs were clear. There is hyperinflation noted suggesting COPD. No pleura l or pericardial effusion is seen. The airway is patent. No mediastinal or hilar lymphadenopathy. The central pulmonary arteries are clear. Coronary artery calcifications. Normal thyroid tissue. Signs o f previous median sternotomy. No destructive bone lesions are seen. CT/CT chest abd pel w con* IMPRESSION: 1. 2 cm focal infiltrate in the upper lobe of the left lung slightly more promi nent than noted previously. This may represent chronic scarring however develop ing neoplasm not totally excluded but felt to be less likely. A six-month follo w-up chest CT might be considered for surveillance. 2. Pulmonary hyperinflation suggesting COPD. 3. No lymphadenopathy in the chest. CT scan of the abdomen and pelvis with contrast. Compared to prior exam 018. 2.1 cm cavernous hemangioma seen along the posterior margin of the right hepati c lobe. This is unchanged. The liver is otherwise unremarkable. Mild prominence of the bile ducts secondary to cholecystectomy. The spleen is not enlarged. Th e stomach and pancreas appear normal. The abdominal aorta is normal in caliber. Portal vein and IVC are patent. Several tiny renal cysts are noted. Cortical s carring of the left kidney. No renal obstruction. Tiny bilateral nonobstructing renal calculi. Separate 18 mm cyst in the left kidney. No lymphadenopathy. No free air. Small bowel loops are normal in caliber. Postoperative changes of the cecum. No sign of acute appendix. Postoperative changes also noted at the rect osigmoid junction. Moderate amount of stool in the colon. No pelvic lymphadenop athy or free fluid. Large left inguinal hernia containing unobstructed small demetris wel. Defect in the prostate gland which may represent sequela from TUR. Calcifi cations in the prostate gland. Intact urinary bladder. Mild bowel wall thickeni ng of the terminal ileum. No destructive bone lesions are seen. IMPRESSION: 1. No mass, lymphadenopathy or acute finding in the abdomen or pelvis. 2. Prominent left inguinal hernia containing unobstructed bowel. 3. Tiny nonobstructing bilateral renal calculi. At least one in each kidney. 4. Postoperative changes of the large bowel. Additional chronic nonacute findin gs.
[2020-11-22] MEDS: iohexol 300 mg/mL 50 mL Btl PO (13:38)
[2020-11-22] MEDS: iohexol 300 mg/mL 100 mL Btl IV (13:40)
== END 2020-11-22 12:59 | disposition home or self-care (01) ==
PROVIDERS: PCP Physician Assistant Medical; Visit Provider Internal Medicine Medical Oncology
DX: C83.38 Diffuse large B-cell lymphoma, lymph nodes of multiple sites (principal); C34.11 Malignant neoplasm of upper lobe, right bronchus or lung; R91.1 Solitary pulmonary nodule; N20.0 Calculus of kidney; K40.90 Unilateral inguinal hernia, without obstruction or gangrene, not specified as recurrent
CPT/HCPCS: 71260; 74177; Q9967

== ENCOUNTER 2020-11-28 13:55 | Outpatient (CLI) | payer MEDICARE, SELFPAY ==
--- NOTE | 2020-11-28 13:58 | CT_ITS ---
WS: [id number] CT NECK TECHNIQUE: Contrast-enhanced CT of the neck with coronal and sagittal reformatted images. CLINICAL INFORMATION: RESTAGING EVALUATION/DIFFUSED LARGE B CELL LYMPHOMA COMPARISON: PET CT August 13, 2019 CT neck May 04, 2020 DLP: 361.[address] scans at [facility] use at least one of these dose optimization techniques: automat ed exposure control; mA and/or kV adjustment per patient size (includes targeted exams where dose is matched to clinical indication); or iterative reconstruction. FINDINGS: Both parotid glands are normal. Normal submandibular glands. No evidence of supraglottic or glottic m ass. Normal parapharyngeal fat. Normal subglottic airway. Small calcified right thyroid nodule measur ing 7 mm. No cervical lymphadenopathy. Minimal residual soft tissue thickening along the right posterior cervic al riddhi in the area of prior treated lymphadenopathy. No evidence of recurrent or progressive disease . Lung apices are well aerated. Mastoid air cells are well aerated. Normal paranasal sinuses. Normal visualized posterior fossa. CT/CT neck w con* [id number] IMPRESSION: 1. No evidence of recurrent or progressive disease. 2. Mild residual soft tissue thickening with treatment-related changes in the right posterior cervical chain. No evidence of new or progressed disease. 3. Normal salivary glands. 4. No evidence of supraglottic or glottic mass. 5. Calcified right thyroid nodule measuring 7 mm is unchanged.
[2020-11-28] MEDS: iohexol 300 mg/mL 100 mL Btl IV (14:31)
== END 2020-11-28 13:56 | disposition home or self-care (01) ==
LOC: RAD 13:56
PROVIDERS: PCP Physician Assistant Medical; Visit Provider Internal Medicine Medical Oncology
DX: C83.38 Diffuse large B-cell lymphoma, lymph nodes of multiple sites (principal); E04.1 Nontoxic single thyroid nodule
CPT/HCPCS: 70491

== ENCOUNTER 2021-02-06 13:19 | Outpatient (CLI) | payer MEDICARE, SELFPAY ==
--- NOTE | 2021-02-06 13:31 | CT_ITS ---
WS: [id number] Glass, Lazaro CT CHEST, ABDOMEN AND PELVIS WITH CONTRAST. HISTORY: Follow-up lymphoma and lung cancer. TECHNIQUE: Contiguous 5 mm axial imaging performed through the chest, abdomen and pelvis with IV cont rast, oral contrast has been provided. Coronal and sagittal reformats chest. Coronal and sagittal ref ormats through the abdomen and pelvis. All CT scans at [facility] use at least one of the se dose optimization techniques: automated exposure control; mA and/or kV adjustment per patient size (includes targeted exams where dose is matched to clinical indication); or iterative reconstruction. CONTRAST: Omnipaque 300; 95 mL IV. DLP: 1445.28 mGy-cm. COMPARISON: 11/22/2020 and 01/21/[address]: Moderate to severe hyperexpansion from emphysema. Subsolid opacification LEFT upper lobe wi th irregular borders measures 2.0 x 1.8 cm. No additional nodules or masses. No pericardial or pleura l effusions. Mild enlargement of the LEFT ventricle. Prior CABG. Atherosclerosis of aorta with no ane urysm. Pulmonary artery size remains normal. No mediastinal or hilar adenopathy. Mediport enters to t he RIGHT subclavian vein. Abdomen CT: There are a few scattered hypodensities scattered throughout the liver which are too smal l to characterize. Again noted is a hemangioma in the posterior RIGHT lobe of the liver. There is als o moderate intrahepatic duct dilatation which may be physiologic. No mass at the pancreatic head or s tone. Prior cholecystectomy. Mild atrophy of the pancreas. Normal spleen. No adrenal mass. Ectatic abdominal aorta. Scattered small hypodensities in the RIGHT kidney too small to characterize. There is no obstruction. Moderate atrophy superior pole LEFT kidney. Mild atrophy of the remaining k idney. No obstruction or solid mass identified. There are a few hypodensities which are too small to characterize. No GI tract obstruction. Surgical sutures are noted at the cecum and at the rectosigmoid junction the re is mild circumferential thickening of the distal small bowel similar to the prior study of 11/23/19 21. Uncertain significance. Pelvic CT: LEFT inguinal hernia is large and contains a loop of colon. No obstruction. No ischemic ch anges. Well-distended urinary bladder. Prostate gland contains central calcifications Sclerotic focus at T11 is stable and probably a bone island. No osteoblastic or osteolytic bone disea se. CT/CT chest abd pel w con* IMPRESSION: 1. No significant adenopathy throughout the chest, abdomen or pelvis. 2. Subsolid opacification LEFT upper lobe measures 2.0 x 1.8 cm and is very sl ightly increased in size over several years. Low-grade adenocarcinoma should be considered. 3. Extensive atherosclerosis thoracic and abdominal aortas. 4. Prior CABG. 5. Prior cholecystectomy with physiologic bile duct dilatation. 6. RIGHT inguinal hernia contains a loop of colon with no obstruction. 7. Atrophy and cortical thinning LEFT kidney.
[2021-02-06] MEDS: iohexol 300 mg/mL 50 mL Btl PO (13:32)
[2021-02-06 14:49] LABS: Basophils % 0.2 %; Eosinophils % 0.3 %; Hematocrit 47.3 % (42.0-52.0); Hemoglobin 14.5 g/dL (11.7-16.6); Lymphocytes # 1.4 10^3/uL (0.8-4.8); Lymphocytes % 11.2 %; Mean Corpuscular HGB Conc 30.7 g/dL (30.0-36.0); Mean Corpuscular Hemoglobin 27.8 pg (28.0-34.0); Mean Corpuscular Volume 90.8 fL (80-94); Mean Platelet Volume 10.9 fL (7.4-10.4); Monocytes # 0.9 10^3/uL (0.2-0.9); Monocytes % 7.2 %; Neutrophils # 9.65 10^3/uL (1.8-7.7); Neutrophils % 80.4 %; Nucleated Red Blood Cells % 0 %; Platelet Count 227 10^3/cmm (130-400); Red Blood Count 5.21 10^6/uL (4.1-5.3); Red Cell Distribution Width 13.9 % (12.1-15.1)
[2021-02-06 15:31] LABS: Alanine Aminotransferase < 5 U/L (0-41); Albumin Level 3.3 g/dL (3.5-5.2); Alkaline Phosphatase 107 IU/L (40-130); Anion Gap 12.3 (5-19); Aspartate Amino Transferase 9 U/L (0-40); Blood Urea Nitrogen 4 mg/dL (8-23); Calcium 8.1 mg/dL (8.5-10.5); Carbon Dioxide 29 mmol/L (22-29); Chloride 100 mmol/L (98-107); Globulin 2.5 g/dL (1.3-4.6); Glucose 114 mg/dL (65-115); Lactate Dehydrogenase 107 U/L (135-225); Osmolality Calculated 284 mOsm/kg (285-295); Potassium 3.3 mmol/L (3.5-5.1); Sodium 138 mmol/L (136-145); Total Bilirubin 0.4 mg/dL (0.15-1.2); Total Protein 5.8 g/dL (6.6-8.7)
[2021-02-06] MEDS: iohexol 300 mg/mL 100 mL Btl IV (15:45)
== END 2021-02-06 13:20 | disposition home or self-care (01) ==
LOC: RADWPI 13:37 → ONCMED 13:41
PROVIDERS: PCP Physician Assistant Medical; Visit Provider Internal Medicine Medical Oncology
DX: D50.8 Other iron deficiency anemias (principal); C34.11 Malignant neoplasm of upper lobe, right bronchus or lung; C83.38 Diffuse large B-cell lymphoma, lymph nodes of multiple sites
CPT/HCPCS: 36415; 71260; 74177; 80053; 83615; 85025; Q9967

== ENCOUNTER 2021-02-14 14:30 | Outpatient (CLI) | payer MEDICARE, SELFPAY ==
--- NOTE | 2021-02-27 07:40 | ONC FU_ITS ---
Dr. Felton Patient Follow-Up Note Patient: Lazaro Vásquez Unit #: [id number]: 1940 Dicatated By: José Manuel Felton M.D.Date of Visit:Feb 14, 2021 Onc Med Follow-up/Prog Note Chief Complaint: Lymphoma/lung cancer. 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 He has a history of Crohn's disease, for which he had been on treatment with Remicade. 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 There was no invasion of pleural effusions and all margins were free. There was no involvement in 5 peribronchial lymph nodes and no involvement in a total of 8 mediastinal lymph nodes. His disease was pathologic stage IA2 (T1b, N0, M0). He received no additional treatment. In November 2018 he had presented with an enlarged lymph node on the right side of the neck. According to his 's description, it came up very quickly. Neck CT on 12/11/2018 showed a well circumcised mass at level IIA on the right side measuring 2.8 x 2.0 x 3.3 cm. There was no adjacent lymphadenopathy noted. Surveillance chest CT on 01/21/2019 showed complete atelectasis of the right middle lobe, new from previous studies. A mixed soft tissue and groundglass pulmonary nodule within the left upper lobe was not significantly changed measuring 1.7 x 1.2 cm. There were no pathologically enlarged thoracic lymph nodes. Further evaluation with PET/CT showed marked increase in metabolic activity in the right neck mass, SUV 16.82. Multiple small right paratracheal lymph nodes were present extending to the pretracheal area with maximum SUV 2.40. An extensive right upper anterolateral mediastinal tissue mass showed marked increase metabolic activity, SUV 8.98. Right level II and III axillary lymph nodes also demonstrated increased metabolic activity. There was no pulmonary nodularity or focal increase of metabolic activity noted. A marked focus of increased metabolic activity was noted in the cecum corresponding to solid soft tissue, maximum SUV 9.0. The uptake in the neck mass, mediastinal lymph nodes, and axillary lymph nodes was felt to be consistent with metastatic involvement. The significance of the uptake in the cecum was not mentioned. He underwent excisional biopsy of the right neck mass on 03/03/2019. Pathology was consistent with diffuse large B-cell lymphoma. The B cells were CD30 positive and MUM-1 negative, consistent with germinal center subtype. I had seen him initially on 03/19/2019. I reviewed options for treatment. He was agreeable to begin a trial of chemotherapy with R-CEOP. In addition, I had a discussion with his chute loader, Dr. Isaías Patino, and he was agreeable to stopping the Remicade. He began cycle 1 of R-CEOP on 04/14/2019. He was able to tolerated with acceptable toxicity, and he proceeded with cycle 2 on 05/06/2019. Restaging PET/CT on 05/23/2019 showed a region of activity in the subcutaneous posterior triangle on the right side of the neck measuring 9 mm with SUV 5.5, suspicious for residual malignancy. There were no other sites of abnormal uptake. A left upper lobe pulmonary nodule was FDG negative. Activity at the cecal anastomosis appeared physiological. He proceeded with cycle 3 of R-CEOP on 06/01/2019. On 06/22/2019 he had presented to the emergency room in [place] with epistaxis and hemoptysis. His blood counts were adequate. He was transferred to [facility] in [place] for admission. On evaluation, which included bronchoscopy, he was determined to have pneumonia. He was discharged home on antibiotic therapy and the pulmonary nebulizer. I had seen him for a follow-up visit on 07/07/2019. I did opt to delay his chemotherapy, as he was still recovering from the pneumonia. He then returned to complete his 4th cycle of R-CEOP on 07/15/2019. Restaging PET/CT on 08/08/2019 showed no evidence of active malignancy. The left upper lobe groundglass pulmonary nodule remained FDG negative. He was then followed on observation/expectant management. In January 2020 had presented with a palpable mass on the right side of the neck. Restaging CT of the neck on 02/10/2020 showed a right sided level III jeffrey mass with somewhat ill-defined margins measuring 3.7 x 2.5 x 5 cm. It was noted to have increased from the November 2018 study. Restaging PET/CT on 02/13/2020 showed new FDG avid right cervical level II lymph node measuring 4.4 x 2.4 cm, SUV 20.9, consistent with recurrent lymphoma. A second 6 mm node in the right level III territory at SUV 6.0, also consistent with lymphoma. The left upper lobe groundglass opacity appeared unchanged. He was treated with involved field radiation, completed on 04/01/2020 to a total dose of [address] of the neck on 05/04/2020 showed ill-defined soft tissue measuring 2.1 x 1.2 cm in the right cervical chain extending from level IIB to level III. There was no other adenopathy noted on that study. He was then followed on observation/expectant management. His medical history is also significant for hypertension, dyslipidemia, and coronary artery disease with ischemic cardiomyopathy and congestive heart failure. Other medical illnesses include COPD, esophageal dysmotility, benign essential tremor, and glaucoma. He has a history of nephrolithiasis. He has a history of smoking 1 pack of cigarettes daily for 50 years. He has cut down to 2 or 3 cigarettes per day. INTERIM HISTORY: Restaging PET/CT on 08/13/2020 showed no suspicious adenopathy to suggest recurrence of lymphoma. There was minimal FDG uptake noted in a mixed groundglass/solid left upper lobe pulmonary nodule measuring 1.2 cm. It was felt to be suspicious for malignancy, though the SUV was only 1.5. At his follow-up visit on 08/16/2020 he appeared stable clinically, but he was noted to have multiple actinic skin lesions. He was scheduled to see a paper pattern inspector. He continued expectant management for the lymphoma and the lung cancer. Surveillance CT scans on 02/06/2021 showed no significant adenopathy throughout the chest, abdomen, or pelvis. A subsolid opacification in the upper lobe of the left lung measuring 2.0 x 1.8 cm had shown slight interval increase suggestive of possible low-grade malignancy. A right inguinal hernia was noted to contain a loop of colon without obstruction. He is seen for a follow-up visit. He has been feeling pretty good generally. He has been seeing the paper pattern inspector for treatment of multiple skin lesions. He has had some issues with his Crohn's disease, mainly periods of diarrhea, though his says that it does tend to cycle. She has been supplementing his diet with Ensure, which may be a contributing factor. His energy is just so-so, but he is able to do light work. ECOG score is 1. He has not had fever or night sweats. He says his breathing is pretty good. He does not complain of shortness of breath, cough, or chest pain. Bladder function has been okay. He has no significant joint or bone pain. He does not complain of headache. He is taking medication for dizziness. He has numbness/tingling in his feet. Medications: amLODIPine Besylate 1 (10 mg) Tablet Oral daily, Aspirin 1 (81 mg) Tablet Oral daily, Atorvastatin Calcium 1 (20 mg) Tablet Oral daily, Carvedilol 1 (3.125 mg) Tablet Oral b.i.d., Ferrous Sulfate 1 Tablet (of 325 (65 fe) mg) Tablet, enteric coated Oral daily, Levaquin 20 mL Liquid Oral daily for 10 days, Losartan Potassium 1 (50 mg) Tablet Oral daily, Plavix 1 (75 mg) Tablet Oral daily, Prochlorperazine Maleate 1 (5 mg) Tablet Oral t.i.d. PRN, Protonix 1 Tablet (of 40 mg) Tablet, enteric coated Oral daily, Questran 4 (4 g/dose) Powder Oral PRN Allergies: Codeine Sulfate Vital Signs: Weight is 130 pounds. Blood pressure 138/70, pulse 85, respirations 18, temp 98.4 degrees, oxygen saturation 94%. Physical Examination: Constitutional - He looks pretty good generally, Eyes - Sclerae nonicteric. Conjunctivae clear, ENMT - No lesions noted in the oral cavity, Hematologic/Lymphatic - There is no cervical, clavicular, or axillary adenopathy, Respiratory - Lungs sound clear with diminished air movement bilaterally, Cardiovascular - Heart rhythm is irregular. There is no murmur, gallop, or rub noted, Abdomen - Soft. Liver and spleen are not enlarged. There is no abdominal mass or ascites noted. There is no inguinal adenopathy noted, Extremities - No edema, Integumentary - There are multiple actinic lesions, some of which have been recently treated, Neurologic - No focal neurologic deficits noted. Lab/Imaging: CBC shows hemoglobin 14.5 g, white blood cell count 12,000, and platelet count 227,000. Comprehensive metabolic profile shows normal renal function with BUN 4 and creatinine 0.6 mg/dL. The bilirubin and liver enzymes are normal. LDH is normal at 107 U/L. Problem List: 1. Diffuse large B-cell lymphoma, germinal center subtype. By clinical evaluation, he had at least stage II disease. His IPI score with stage II disease and normal LDH was 2, low-intermediate risk. He was treated with 4 cycles of R-CEOP chemotherapy from 04/14/2019 thru 07/15/2019. He had a complete response by PET/CT. 2. There was also PET/CT evidence of FDG uptake in the area of the cecum, clinical significance of which was uncertain. 3. 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 4. He has Crohn's disease for which he had been on long-term treatment with Remicade. It was stopped with diagnosis of his lymphoma. 5. Hypertension. 6. Dyslipidemia. 7. Coronary artery disease with ischemic cardiomyopathy and congestive heart failure. 8. COPD. 9. Esophageal dysmotility. 10. Benign essential tremor. 11. History of nephrolithiasis. 12. Glaucoma. Problems Addressed with this Encounter and Plan: 1. Patient with diffuse large B-cell lymphoma, germinal center subtype. By clinical evaluation, he had at least stage II disease at initial diagnosis in February 2019. He had complete response by PET/CT to initial chemotherapy with 4 cycles of R-C EOP, completed in June 2019. He had PET/CT evidence of recurrence in the right side of the neck in January 2020. He was treated with involved field radiation, completed on 04/01/2020 to a total dose of 5000 cGy. His repeat neck CT on 05/04/2020 showed residual ill-defined soft tissue in the right cervical chain measuring 2.1 x 1.2 cm. Restaging PET/CT on 08/13/2020 showed no suspicious adenopathy to suggest recurrence of lymphoma. There was minimal FDG uptake noted in a mixed groundglass/solid left upper lobe pulmonary nodule measuring 1.2 cm. It was felt to be suspicious for malignancy, though the SUV was only 1.5. During follow-up there has been some gradual improvement in his performance status. His surveillance CT scans thus far have shown no evidence of recurrence of the lymphoma. He will continue expectant management. I will see him in 3 months. 2. 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 Thus far during follow-up there has been no evidence of recurrence of the lung cancer, but his CT scans have shown slight increase in a left upper lobe pulmonary opacity, and that requires ongoing surveillance. 3. He has multiple prominent actinic lesions in the head/facial area, Including a very prominent keratotic lesion on the forehead, multiple smaller actinic lesions, and what appears to be a recurrent actinic lesion on the helix of the right ear at the site of her previous excision. He has been seeing his paper pattern inspector. Signed By: José Manuel Felton M.D. <<Signature on File>>
== END 2021-02-14 14:31 | disposition home or self-care (01) ==
LOC: ONCMED 02-15 07:04
PROVIDERS: PCP Physician Assistant Medical; Visit Provider Internal Medicine Medical Oncology
DX: Z08 Encounter for follow-up examination after completed treatment for malignant neoplasm (principal); Z85.118 Personal history of other malignant neoplasm of bronchus and lung; Z85.72 Personal history of non-Hodgkin lymphomas; Z92.21 Personal history of antineoplastic chemotherapy; K50.90 Crohn's disease, unspecified, without complications; E78.5 Hyperlipidemia, unspecified; I25.10 Atherosclerotic heart disease of native coronary artery without angina pectoris; I11.0 Hypertensive heart disease with heart failure; I50.9 Heart failure, unspecified; I42.9 Cardiomyopathy, unspecified; J44.9 Chronic obstructive pulmonary disease, unspecified; G25.0 Essential tremor; H40.9 Unspecified glaucoma; Z79.899 Other long term (current) drug therapy
CPT/HCPCS: 99214

== ENCOUNTER 2021-05-18 10:28 | Outpatient (CLI) | payer MEDICARE, SELFPAY ==
[2021-05-18 11:11] LABS: Basophils % 0.3 %; Eosinophils % 0.2 %; Hematocrit 43.8 % (42.0-52.0); Hemoglobin 13.6 g/dL (11.7-16.6); Lymphocytes # 1.5 10^3/uL (0.8-4.8); Lymphocytes % 9.2 %; Mean Corpuscular HGB Conc 31.1 g/dL (30.0-36.0); Mean Corpuscular Volume 87.1 fl (80-94); Mean Platelet Volume 9.8 fL (7.4-10.4); Neutrophils % 83.6 %; Nucleated Red Blood Cells % 0 %; Platelet Count 357 10^3/cmm (130-400); Red Blood Count 5.03 10^6/uL (4.1-5.3); Red Cell Distribution Width 15.1 % (12.1-15.1); White Blood Count 15.8 10^3/uL (4.0-10.0)
--- NOTE | 2021-05-18 11:34 | CT_ITS ---
WS: [id number] CT CHEST TECHNIQUE: Contrast enhanced CT of the chest with coronal and sagittal reformatted images. CLINICAL INFORMATION: LYMPHOMA/LUNG CANCER COMPARISON: CT February 06, 2021 November 22, 2020. PET/CT August 13, 2020 DLP: 429.[address] scans at [facility] use at least one of these dose optimization techniques: automated e xposure control; mA and/or kV adjustment per patient size (includes targeted exams where dose is matc hed to clinical indication); or iterative reconstruction. FINDINGS: Again seen is the semisolid opacity left upper lobe measuring 2.0 x 1. 6 cm stable compared to previo us. Central solid component has increased slightly compared to the prior examination. Surrounding spi culation. Findings remain suspicious for neoplasm. No other suspicious parenchymal abnormalities. Aortic calcification. No mediastinal or hilar lymphade nopathy. Coronary calcification. Stable bronchovascular thickening along the right hilum. Sternotomy with CABG. Cholecystectomy clips. Stable tiny enhancing lesion right hepatic lobe likely h emangioma or vascular anomaly. Adrenal glands are normal. Left renal cortical atrophy. Hypertrophic c hanges thoracic spine. IMPRESSION: 1. Semisolid slightly spiculated opacity left upper lobe unchanged in size today, however slight inc reased central solid component compared to previous. Findings suspicious for neoplasm. This can be fu rther evaluated PET/CT. Recommend continued surveillance. 2. No mediastinal or hilar lymphadenopathy. 3. No other significant interval changes.
[2021-05-18 11:37] LABS: Alanine Aminotransferase 6 U/L (0-41); Albumin Level 2.9 g/dL (3.5-5.2); Alkaline Phosphatase 101 IU/L (40-130); Anion Gap 11.5 (5-19); Aspartate Amino Transferase 8 U/L (0-40); Blood Urea Nitrogen 5 mg/dL (8-23); Calcium 8.1 mg/dL (8.5-10.5); Carbon Dioxide 29 mmol/L (22-29); Chloride 99 mmol/L (98-107); Globulin 2.5 g/dL (1.3-4.6); Glucose 116 mg/dL (65-115); Lactate Dehydrogenase 70 U/L (135-225); Osmolality Calculated 280 mOsm/kg (285-295); Potassium 3.5 mmol/L (3.5-5.1); Sodium 136 mmol/L (136-145); Total Bilirubin 0.3 mg/dL (0.15-1.2); Total Protein 5.4 g/dL (6.6-8.7)
[2021-05-18] MEDS: iohexol 300 mg/mL 100 mL Btl IV (12:09)
== END 2021-05-18 10:29 | disposition home or self-care (01) ==
LOC: CT 10:33 → ONCMED 10:44
PROVIDERS: PCP Physician Assistant Medical; Visit Provider Internal Medicine Medical Oncology
DX: C83.38 Diffuse large B-cell lymphoma, lymph nodes of multiple sites (principal); C34.11 Malignant neoplasm of upper lobe, right bronchus or lung; D50.9 Iron deficiency anemia, unspecified
CPT/HCPCS: 36591; 71260; 80053; 83615; 85025; Q9967

== ENCOUNTER 2021-06-01 08:35 | Outpatient (CLI) | payer MEDICARE, SELFPAY ==
--- NOTE | 2021-06-01 14:55 | ONC FU_ITS ---
Dr. Felton Patient Follow-Up Note Patient: Lazaro Vásquez Unit #: [id number]: [id number] Dicatated By: José Manuel Felton M.D.Date of Visit:Jun 01, 2021 Onc Med Follow-up/Prog Note Chief Complaint: Lymphoma/lung cancer. 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 He has a history of Crohn's disease, for which he had been on treatment with Remicade. 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 There was no invasion of pleural effusions and all margins were free. There was no involvement in 5 peribronchial lymph nodes and no involvement in a total of 8 mediastinal lymph nodes. His disease was pathologic stage IA2 (T1b, N0, M0). He received no additional treatment. In November 2018 he had presented with an enlarged lymph node on the right side of the neck. According to his 's description, it came up very quickly. Neck CT on 12/11/2018 showed a well circumcised mass at level IIA on the right side measuring 2.8 x 2.0 x 3.3 cm. There was no adjacent lymphadenopathy noted. Surveillance chest CT on 01/21/2019 showed complete atelectasis of the right middle lobe, new from previous studies. A mixed soft tissue and groundglass pulmonary nodule within the left upper lobe was not significantly changed measuring 1.7 x 1.2 cm. There were no pathologically enlarged thoracic lymph nodes. Further evaluation with PET/CT showed marked increase in metabolic activity in the right neck mass, SUV 16.82. Multiple small right paratracheal lymph nodes were present extending to the pretracheal area with maximum SUV 2.40. An extensive right upper anterolateral mediastinal tissue mass showed marked increase metabolic activity, SUV 8.98. Right level II and III axillary lymph nodes also demonstrated increased metabolic activity. There was no pulmonary nodularity or focal increase of metabolic activity noted. A marked focus of increased metabolic activity was noted in the cecum corresponding to solid soft tissue, maximum SUV 9.0. The uptake in the neck mass, mediastinal lymph nodes, and axillary lymph nodes was felt to be consistent with metastatic involvement. The significance of the uptake in the cecum was not mentioned. He underwent excisional biopsy of the right neck mass on 03/03/2019. Pathology was consistent with diffuse large B-cell lymphoma. The B cells were CD30 positive and MUM-1 negative, consistent with germinal center subtype. I had seen him initially on 03/19/2019. I reviewed options for treatment. He was agreeable to begin a trial of chemotherapy with R-CEOP. In addition, I had a discussion with his dental office assistant, Dr. Isaías Patino, and he was agreeable to stopping the Remicade. He began cycle 1 of R-CEOP on 04/14/2019. He was able to tolerated with acceptable toxicity, and he proceeded with cycle 2 on 05/06/2019. Restaging PET/CT on 05/23/2019 showed a region of activity in the subcutaneous posterior triangle on the right side of the neck measuring 9 mm with SUV 5.5, suspicious for residual malignancy. There were no other sites of abnormal uptake. A left upper lobe pulmonary nodule was FDG negative. Activity at the cecal anastomosis appeared physiological. He proceeded with cycle 3 of R-CEOP on 06/01/2019. On 06/22/2019 he had presented to the emergency room in [place] with epistaxis and hemoptysis. His blood counts were adequate. He was transferred to [facility] in [place] for admission. On evaluation, which included bronchoscopy, he was determined to have pneumonia. He was discharged home on antibiotic therapy and the pulmonary nebulizer. I had seen him for a follow-up visit on 07/07/2019. I did opt to delay his chemotherapy, as he was still recovering from the pneumonia. He then returned to complete his 4th cycle of R-CEOP on 07/15/2019. Restaging PET/CT on 08/08/2019 showed no evidence of active malignancy. The left upper lobe groundglass pulmonary nodule remained FDG negative. He was then followed on observation/expectant management. In January 2020 had presented with a palpable mass on the right side of the neck. Restaging CT of the neck on 02/10/2020 showed a right sided level III jeffrey mass with somewhat ill-defined margins measuring 3.7 x 2.5 x 5 cm. It was noted to have increased from the November 2018 study. Restaging PET/CT on 02/13/2020 showed new FDG avid right cervical level II lymph node measuring 4.4 x 2.4 cm, SUV 20.9, consistent with recurrent lymphoma. A second 6 mm node in the right level III territory at SUV 6.0, also consistent with lymphoma. The left upper lobe groundglass opacity appeared unchanged. He was treated with involved field radiation, completed on 04/01/2020 to a total dose of [address] of the neck on 05/04/2020 showed ill-defined soft tissue measuring 2.1 x 1.2 cm in the right cervical chain extending from level IIB to level III. There was no other adenopathy noted on that study. He was then followed on observation/expectant management. His medical history is also significant for hypertension, dyslipidemia, and coronary artery disease with ischemic cardiomyopathy and congestive heart failure. Other medical illnesses include COPD, esophageal dysmotility, benign essential tremor, and glaucoma. He has a history of nephrolithiasis. He has a history of smoking 1 pack of cigarettes daily for 50 years. He has cut down to 2 or 3 cigarettes per day. INTERIM HISTORY: Restaging PET/CT on 08/13/2020 showed no suspicious adenopathy to suggest recurrence of lymphoma. There was minimal FDG uptake noted in a mixed groundglass/solid left upper lobe pulmonary nodule measuring 1.2 cm. It was felt to be suspicious for malignancy, though the SUV was only 1.5. At his follow-up visit on 08/16/2020 he appeared stable clinically, but he was noted to have multiple actinic skin lesions. He was scheduled to see a per diem rn. He continued expectant management for the lymphoma and the lung cancer. Surveillance CT scans on 02/06/2021 showed no significant adenopathy throughout the chest, abdomen, or pelvis. A subsolid opacification in the upper lobe of the left lung measuring 2.0 x 1.8 cm had shown slight interval increase suggestive of possible low-grade malignancy. A right inguinal hernia was noted to contain a loop of colon without obstruction. He continued expectant management. Repeat chest CT on 05/08/2021 showed unchanged size of the semisolid slightly spiculated opacity in the left upper lobe, but with slight increased central solid component compared to the previous studies. The findings were felt to be suspicious for neoplasm. There was no mediastinal or hilar lymphadenopathy and no other significant interval changes. He is seen for a follow-up visit. He says he has been feeling pretty good except that he is dizzy and that he has no balance. He also does not have much energy, and there has been a decline in his activity. His ECOG score is 2. He complains that he has no appetite. He has had significant weight loss, the range of 15 pounds since October. He does not have fever or night sweats. He has not had sore mouth or throat. He says his breathing is not bad. He does not complain of cough, and he has not been having chest pain. He currently has no GI or complaints. He has no significant joint or bone pain. He does not complain of headache. He does have some numbness in his feet, and he complains that they swell a lot. He has been having some depression. Medications: amLODIPine Besylate 1 (10 mg) Tablet Oral daily, Aspirin 1 (81 mg) Tablet Oral daily, Atorvastatin Calcium 1 (20 mg) Tablet Oral daily, Carvedilol 1 (3.125 mg) Tablet Oral b.i.d., Ferrous Sulfate 1 Tablet (of 325 (65 fe) mg) Tablet, enteric coated Oral daily, Levaquin 20 mL Liquid Oral daily for 10 days, Losartan Potassium 1 (50 mg) Tablet Oral daily, Plavix 1 (75 mg) Tablet Oral daily, Prochlorperazine Maleate 1 (5 mg) Tablet Oral t.i.d. PRN, Protonix 1 Tablet (of 40 mg) Tablet, enteric coated Oral daily, Questran 4 (4 g/dose) Powder Oral PRN Allergies: Codeine Sulfate Vital Signs: Performed on Jun 01, 2021 08:45 Height - 67.00 in Weight - 123.4 lbs (LOW) BSA - 1.65 sq.m BMI - 19.33 Temperature - 97.8 F (LOW) Pulse - 81 /min Respiration - 18 /min BP - 124/67 mm(hg) O2 Sat - 98 % Pain - 0 Fatigue - 7 Physical Examination: Constitutional - He appears somewhat weak generally, Eyes - Sclerae nonicteric. Conjunctivae clear, ENMT - No lesions noted in the oral cavity, Hematologic/Lymphatic - There is no cervical, clavicular, or axillary adenopathy, Respiratory - Lungs sound clear with diminished air movement bilaterally, Cardiovascular - Heart rhythm is irregular. There is no murmur, gallop, or rub noted, Abdomen - Soft. Liver and spleen are not enlarged. There is no abdominal mass or ascites noted. There is no inguinal adenopathy noted, Extremities - No edema, Integumentary - He has multiple actinic lesions, Neurologic - No focal neurologic deficits noted. Lab/Imaging: Test performed on May 18, 2021 10:59 LDH (Total) 70 U/L Sodium 136 mmol/L Potassium 3.5 mmol/L Chloride 99 mmol/L CO2 29 mmol/L Anion Gap 11.5 BUN 5 mg/dL Creatinine 0.5 mg/dL Cr Clearance (Est) 102.5900 mL/min Glucose 116 mg/dL Osmolality - Calculated 280 mOsm/kg Calcium 8.1 mg/dL Protein, Total 5.4 g/dL Albumin 2.9 g/dL Globulin 2.5 g/dL Bilirubin, Total 0.3 mg/dL ALT (SGPT) 6 U/L AST (SGOT) 8 U/L Alkaline Phosphatase 101 IU/L WBC 15.8 10 3/uL RBC 5.03 10 6/uL HGB 13.6 g/dL HCT 43.8 % MCV 87.1 fl MCH 27.0 pg MCHC 31.1 g/dL RDW 15.1 % Platelet Count 357 10 3/cmm MPV 9.8 fL Neutrophils 13.20 10 3/uL Lymphocytes 1.5 10 3/uL Monocytes 1.0 10 3/uL Eosinophils 0.0 10 3/uL Basophils 0.0 10 3/uL Neutrophil % 83.6 % Lymphocyte % 9.2 % Monocyte % 6.0 % Eosinophil % 0.2 % Basophils % 0.3 % NRBC % 0 % Problem List: 1. Diffuse large B-cell lymphoma, germinal center subtype. By clinical evaluation, he had at least stage II disease. His IPI score with stage II disease and normal LDH was 2, low-intermediate risk. He was treated with 4 cycles of R-CEOP chemotherapy from 04/14/2019 thru 07/15/2019. He had a complete response by PET/CT. 2. There was also PET/CT evidence of FDG uptake in the area of the cecum, clinical significance of which was uncertain. 3. 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 4. He has Crohn's disease for which he had been on long-term treatment with Remicade. It was stopped with diagnosis of his lymphoma. 5. Hypertension. 6. Dyslipidemia. 7. Coronary artery disease with ischemic cardiomyopathy and congestive heart failure. 8. COPD. 9. Esophageal dysmotility. 10. Benign essential tremor. 11. History of nephrolithiasis. 12. Glaucoma. Problems Addressed with this Encounter and Plan: 1. Patient with diffuse large B-cell lymphoma, germinal center subtype. By clinical evaluation, he had at least stage II disease at initial diagnosis in February 2019. He had complete response by PET/CT to initial chemotherapy with 4 cycles of R-C EOP, completed in June 2019. He had PET/CT evidence of recurrence in the right side of the neck in January 2020. He was treated with involved field radiation, completed on 04/01/2020 to a total dose of 5000 cGy. His repeat neck CT on 05/04/2020 showed residual ill-defined soft tissue in the right cervical chain measuring 2.1 x 1.2 cm. Restaging PET/CT on 08/13/2020 showed no suspicious adenopathy to suggest recurrence of lymphoma. There was minimal FDG uptake noted in a mixed groundglass/solid left upper lobe pulmonary nodule measuring 1.2 cm. It was felt to be suspicious for malignancy, though the SUV was only 1.5. During follow-up there was some gradual improvement in his performance status. His surveillance CT scans thus far have shown no evidence of recurrence of the lymphoma. However, since his last visit he has had some decline in his activity/performance status, and he has had significant weight loss. He also has been followed for a persistent left upper lobe pulmonary nodule. While it has not shown further enlargement by CT scan, the appearance is felt to be suspicious for neoplasm. As such, he will be scheduled for restaging PET/CT. In addition, as he is also having significant disequilibrium, he will be scheduled for head MRI. He will have further evaluation as indicated. 2. 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 Thus far during follow-up there has been no evidence of recurrence of the lung cancer. Management is as noted above. 3. He has multiple prominent actinic lesions in the head/facial area, Including a very prominent keratotic lesion on the forehead, multiple smaller actinic lesions, and what appears to be a recurrent actinic lesion on the helix of the right ear at the site of her previous excision. He is being followed by a per diem rn. 4. He is having some depression. He is agreeable to starting citalopram 10 mg daily. Signed By: José Manuel Felton M.D. <<Signature on File>>
== END 2021-06-01 08:36 | disposition home or self-care (01) ==
LOC: ONCMED 08:37
PROVIDERS: PCP Physician Assistant Medical; Visit Provider Internal Medicine Medical Oncology
DX: Z08 Encounter for follow-up examination after completed treatment for malignant neoplasm (principal); Z85.118 Personal history of other malignant neoplasm of bronchus and lung; Z85.72 Personal history of non-Hodgkin lymphomas; K50.90 Crohn's disease, unspecified, without complications; I10 Essential (primary) hypertension; E78.5 Hyperlipidemia, unspecified; I25.10 Atherosclerotic heart disease of native coronary artery without angina pectoris; I25.5 Ischemic cardiomyopathy; I50.9 Heart failure, unspecified; J44.9 Chronic obstructive pulmonary disease, unspecified; K22.4 Dyskinesia of esophagus; G25.0 Essential tremor; H40.9 Unspecified glaucoma; Z87.442 Personal history of urinary calculi; Z92.21 Personal history of antineoplastic chemotherapy; Z92.3 Personal history of irradiation; Z79.899 Other long term (current) drug therapy
CPT/HCPCS: 90471; 90686; 99214

== ENCOUNTER 2021-06-06 07:54 | Outpatient (CLI) | payer MEDICARE, SELFPAY ==
--- NOTE | 2021-06-06 08:05 | MR_ITS ---
WS: [id number] MRI HEAD WITH CONTRAST TECHNIQUE: Sagittal T1, T2 axial, T2 axial FLAIR, axial susceptibility weighted imaging, axial diffus ion weighted images, and coronal T2 images were obtained. Pre and post-T1 axial and post T1 coronal i mages. ADC and FSPGR images. CLINICAL INFORMATION: LUNG CANCER, WEAKNESS COMPARISON: Numerous prior PET CTs dating back to . CT chest abdomen pelvis May 18, 2021 FINDINGS: No evidence of restricted diffusion to suggest acute ischemia. Ventricular system and basal cisterns are patent. Moderate to advanced small vessel changes with moderate parenchymal volume loss. Normal p osterior fossa. Normal vascular flow voids at the skull base. No extra-axial fluid collections. Paran panda sinuses well aerated. Mastoid air cells are well aerated. 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 No hemosiderin on susceptibly weighted images. Normal optic chiasm and pituitary infundibulum. Mild t o moderate symmetric atrophy temporal lobes and hippocampal formations. Normal cavernous sinuses and Meckel's cave. No abnormal gadolinium enhancement. No evidence of enhancing intracranial metastatic disease. No evid ence of mass or mass effect. Normal dural venous sinuses. MR/MR head wo/w con [id number] IMPRESSION: 1. No evidence of restricted diffusion to suggest acute ischemia. 2. No evidence of enhancing intracranial metastatic disease. No evidence of in tracranial edema or mass effect. 3. Moderate to advanced small vessel changes with moderate cortical volume los s. 4. No hemosiderin on susceptibly weighted images.
[2021-06-06] MEDS: gadobenate dimeglumine 20 mL vial IV (08:46)
== END 2021-06-06 07:55 | disposition home or self-care (01) ==
PROVIDERS: PCP Physician Assistant Medical; Visit Provider Internal Medicine Medical Oncology
DX: C34.11 Malignant neoplasm of upper lobe, right bronchus or lung (principal); R53.1 Weakness
CPT/HCPCS: 70553; A9577

== ENCOUNTER 2021-08-17 14:32 | Outpatient (CLI) | payer MEDICARE, SELFPAY ==
--- NOTE | 2021-08-17 | CT_ITS ---
WS: [id number] CT CHEST TECHNIQUE: Contrast enhanced CT of the chest with coronal and sagittal reformatted images. CLINICAL INFORMATION: MALIGNANT NEOPLASM RUL, LYMPHOMA COMPARISON: None. DLP: 871.[address] scans at [facility] use at least one of these dose optimization techniques: automated e xposure control; mA and/or kV adjustment per patient size (includes targeted exams where dose is matc hed to clinical indication); or iterative reconstruction. FINDINGS: Again seen is the spiculated left upper lobe pulmonary opacity not significantly changed since Octobe 2020. Today this measures approximately 2.0 x 1.6 CM. This demonstrated FDG activity on the May PET/CT suspicious for neoplasm. Tiny noncalcified 4 mm nodule left lung apex more appa rent compared to May 18, 2021. Calcified anterior right thyroid nodule measuring 6 mm. Normal caliber thoracic aorta. Aortic calcifi cation. No mediastinal or hilar lymphadenopathy. No axillary lymphadenopathy. Right Port-A-Cath. Prio r sternotomy. Celiac and SMA are patent. Proximal renal arteries are patent. Adrenal glands are ruth l. Prior cholecystectomy. Incidental enhancing lesion undersurface right hepatic lobe measuring 2 cm with additional similar-appearing enhancing lesion partially visualized undersurface right hepatic lo be anteriorly. 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 Adren al glands are normal. Hypertrophic changes thoracic spine. Benign bone island T11 vertebral body is unchanged since 2018 CT/CT chest w con* [id number] IMPRESSION: 1. Stable spiculated left upper lobe pulmonary opacity suspicious for neoplasm . This is unchanged since the recent PET/CT June 03, 2021. 2. No mediastinal or hilar lymphadenopathy. No axillary lymphadenopathy. 3. Tiny noncalcified nodule left upper lobe near the apex better visualized to day measuring 4 mm. 4. Enhancing lesions in the right hepatic lobe most consistent with hemangioma s unchanged since 18.
[2021-08-17 15:10] LABS: Blood Urea Nitrogen 7 mg/dL (8-23)
[2021-08-17] MEDS: iohexol 300 mg/mL 100 mL Btl IV (15:16)
== END 2021-08-17 14:33 | disposition home or self-care (01) ==
PROVIDERS: PCP Family Medicine; Visit Provider Internal Medicine Medical Oncology
DX: R91.1 Solitary pulmonary nodule (principal); C34.11 Malignant neoplasm of upper lobe, right bronchus or lung; C83.38 Diffuse large B-cell lymphoma, lymph nodes of multiple sites; K76.9 Liver disease, unspecified
CPT/HCPCS: 71260; 82565; 84520; Q9967

== ENCOUNTER 2021-09-07 12:49 | Outpatient (CLI) | payer MEDICARE, SELFPAY ==
--- NOTE | 2021-09-10 11:25 | ONC FU_ITS ---
Dr. Felton Patient Follow-Up Note Patient: Lazaro Vásquez Unit #: [id number]: [id number] Dicatated By: José Manuel Felton M.D.Date of Visit:Sep 07, 2021 Onc Med Follow-up/Prog Note Chief Complaint: Lymphoma/lung cancer. 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 He has a history of Crohn's disease, for which he had been on treatment with Remicade. 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 There was no invasion of pleural effusions and all margins were free. There was no involvement in 5 peribronchial lymph nodes and no involvement in a total of 8 mediastinal lymph nodes. His disease was pathologic stage IA2 (T1b, N0, M0). He received no additional treatment. In November 2018 he had presented with an enlarged lymph node on the right side of the neck. According to his 's description, it came up very quickly. Neck CT on 12/11/2018 showed a well circumcised mass at level IIA on the right side measuring 2.8 x 2.0 x 3.3 cm. There was no adjacent lymphadenopathy noted. Surveillance chest CT on 01/21/2019 showed complete atelectasis of the right middle lobe, new from previous studies. A mixed soft tissue and groundglass pulmonary nodule within the left upper lobe was not significantly changed measuring 1.7 x 1.2 cm. There were no pathologically enlarged thoracic lymph nodes. Further evaluation with PET/CT showed marked increase in metabolic activity in the right neck mass, SUV 16.82. Multiple small right paratracheal lymph nodes were present extending to the pretracheal area with maximum SUV 2.40. An extensive right upper anterolateral mediastinal tissue mass showed marked increase metabolic activity, SUV 8.98. Right level II and III axillary lymph nodes also demonstrated increased metabolic activity. There was no pulmonary nodularity or focal increase of metabolic activity noted. A marked focus of increased metabolic activity was noted in the cecum corresponding to solid soft tissue, maximum SUV 9.0. The uptake in the neck mass, mediastinal lymph nodes, and axillary lymph nodes was felt to be consistent with metastatic involvement. The significance of the uptake in the cecum was not mentioned. He underwent excisional biopsy of the right neck mass on 03/03/2019. Pathology was consistent with diffuse large B-cell lymphoma. The B cells were CD30 positive and MUM-1 negative, consistent with germinal center subtype. I had seen him initially on 03/19/2019. I reviewed options for treatment. He was agreeable to begin a trial of chemotherapy with R-CEOP. In addition, I had a discussion with his restorer lace and textiles, Dr. Isaías Patino, and he was agreeable to stopping the Remicade. He began cycle 1 of R-CEOP on 04/14/2019. He was able to tolerated with acceptable toxicity, and he proceeded with cycle 2 on 05/06/2019. Restaging PET/CT on 05/23/2019 showed a region of activity in the subcutaneous posterior triangle on the right side of the neck measuring 9 mm with SUV 5.5, suspicious for residual malignancy. There were no other sites of abnormal uptake. A left upper lobe pulmonary nodule was FDG negative. Activity at the cecal anastomosis appeared physiological. He proceeded with cycle 3 of R-CEOP on 06/01/2019. On 06/22/2019 he had presented to the emergency room in [place] with epistaxis and hemoptysis. His blood counts were adequate. He was transferred to [facility] in [place] for admission. On evaluation, which included bronchoscopy, he was determined to have pneumonia. He was discharged home on antibiotic therapy and the pulmonary nebulizer. I had seen him for a follow-up visit on 07/07/2019. I did opt to delay his chemotherapy, as he was still recovering from the pneumonia. He then returned to complete his 4th cycle of R-CEOP on 07/15/2019. Restaging PET/CT on 08/08/2019 showed no evidence of active malignancy. The left upper lobe groundglass pulmonary nodule remained FDG negative. He was then followed on observation/expectant management. In January 2020 had presented with a palpable mass on the right side of the neck. Restaging CT of the neck on 02/10/2020 showed a right sided level III jeffrey mass with somewhat ill-defined margins measuring 3.7 x 2.5 x 5 cm. It was noted to have increased from the November 2018 study. Restaging PET/CT on 02/13/2020 showed new FDG avid right cervical level II lymph node measuring 4.4 x 2.4 cm, SUV 20.9, consistent with recurrent lymphoma. A second 6 mm node in the right level III territory at SUV 6.0, also consistent with lymphoma. The left upper lobe groundglass opacity appeared unchanged. He was treated with involved field radiation, completed on 04/01/2020 to a total dose of [address] of the neck on 05/04/2020 showed ill-defined soft tissue measuring 2.1 x 1.2 cm in the right cervical chain extending from level IIB to level III. There was no other adenopathy noted on that study. He was then followed on observation/expectant management. His medical history is also significant for hypertension, dyslipidemia, and coronary artery disease with ischemic cardiomyopathy and congestive heart failure. Other medical illnesses include COPD, esophageal dysmotility, benign essential tremor, and glaucoma. He has a history of nephrolithiasis. He has a history of smoking 1 pack of cigarettes daily for 50 years. He has cut down to 2 or 3 cigarettes per day. INTERIM HISTORY: Restaging PET/CT on 08/13/2020 showed no suspicious adenopathy to suggest recurrence of lymphoma. There was minimal FDG uptake noted in a mixed groundglass/solid left upper lobe pulmonary nodule measuring 1.2 cm. It was felt to be suspicious for malignancy, though the SUV was only 1.5. At his follow-up visit on 08/16/2020 he appeared stable clinically, but he was noted to have multiple actinic skin lesions. He was scheduled to see a design maintenance engineer. He continued expectant management for the lymphoma and the lung cancer. Surveillance CT scans on 02/06/2021 showed no significant adenopathy throughout the chest, abdomen, or pelvis. A subsolid opacification in the upper lobe of the left lung measuring 2.0 x 1.8 cm had shown slight interval increase suggestive of possible low-grade malignancy. A right inguinal hernia was noted to contain a loop of colon without obstruction. He continued expectant management. Repeat chest CT on 05/08/2021 showed unchanged size of the semisolid slightly spiculated opacity in the left upper lobe, but with slight increased central solid component compared to the previous studies. The findings were felt to be suspicious for neoplasm. There was no mediastinal or hilar lymphadenopathy and no other significant interval changes. PET/CT on 06/03/2021 showed a mixed groundglass/solid left upper lobe nodule which had increased in size to 1.5 cm compared to 1.2 cm in July 2020. SUV has increased to 3.1. This was felt to have higher probability of malignancy. There were no other areas of abnormal uptake. Repeat chest CT on 08/17/2021 showed no change in the spiculated left upper lobe nodule measuring 2.0 x 1.6 cm. A tiny noncalcified nodule at the left lung apex measuring 4 mm was noted to be more apparent compared to the April [address] scan. He is seen for a follow-up visit. He has been feeling pretty good generally. His energy lately has been pretty good. He has been able to do light work. ECOG score is 1. His appetite is getting better. His weight is up a couple of pounds. He does not have fever or night sweats. He has not had sore mouth or throat, and he does not complain of cough. He says his breathing is pretty good. He has not been having chest pain. He has no GI/ complaints other than his bowel function tends to be inconsistent with the Crohn's disease. He is able to regulate it pretty well. He has no significant joint or bone pain. He does not complain of headache. He sometimes has dizziness/lightheadedness. He has some numbness in his feet. Medications: amLODIPine Besylate 1 (10 mg) Tablet Oral daily, Aspirin 1 (81 mg) Tablet Oral daily, Atorvastatin Calcium 1 (20 mg) Tablet Oral daily, Carvedilol 1 (3.125 mg) Tablet Oral b.i.d., Ferrous Sulfate 1 Tablet (of 325 (65 fe) mg) Tablet, enteric coated Oral daily, Levaquin 20 mL Liquid Oral daily for 10 days, Losartan Potassium 1 (50 mg) Tablet Oral daily, Plavix 1 (75 mg) Tablet Oral daily, Prochlorperazine Maleate 1 (5 mg) Tablet Oral t.i.d. PRN, Protonix 1 Tablet (of 40 mg) Tablet, enteric coated Oral daily, Questran 4 (4 g/dose) Powder Oral PRN Allergies: Codeine Sulfate Vital Signs: Performed on Sep 07, 2021 13:45 Height - 67.00 in Weight - 125.0 lbs (HIGH) BSA - 1.66 sq.m BMI - 19.58 Temperature - 97.1 F (LOW) Pulse - 73 /min Respiration - 16 /min BP - 150/75 mm(hg) (HIGH) O2 Sat - 98 % Pain - 0 Fatigue - 5 Physical Examination: Constitutional - He appears somewhat weak generally, Eyes - Sclerae nonicteric. Conjunctivae clear, ENMT - No lesions noted in the oral cavity, Hematologic/Lymphatic - There is no cervical, clavicular, or axillary adenopathy, Respiratory - Lungs sound clear with diminished air movement bilaterally, Cardiovascular - Heart rhythm is irregular. There is no murmur, gallop, or rub noted, Abdomen - Soft. Liver and spleen are not enlarged. There is no abdominal mass or ascites noted. There is no inguinal adenopathy noted, Extremities - No edema, Integumentary - He has multiple actinic lesions, including a prominent lesion on the helix of the right ear and multiple lesions on both sides of the face and upper chest, Neurologic - No focal neurologic deficits noted. Lab/Imaging: Test performed on May 18, 2021 10:59 LDH (Total) 70 U/L Sodium 136 mmol/L Potassium 3.5 mmol/L Chloride 99 mmol/L CO2 29 mmol/L Anion Gap 11.5 BUN 5 mg/dL Creatinine 0.5 mg/dL Cr Clearance (Est) 102.5900 mL/min Glucose 116 mg/dL Osmolality - Calculated 280 mOsm/kg Calcium 8.1 mg/dL Protein, Total 5.4 g/dL Albumin 2.9 g/dL Globulin 2.5 g/dL Bilirubin, Total 0.3 mg/dL ALT (SGPT) 6 U/L AST (SGOT) 8 U/L Alkaline Phosphatase 101 IU/L WBC 15.8 10 3/uL RBC 5.03 10 6/uL HGB 13.6 g/dL HCT 43.8 % MCV 87.1 fl MCH 27.0 pg MCHC 31.1 g/dL RDW 15.1 % Platelet Count 357 10 3/cmm MPV 9.8 fL Neutrophils 13.20 10 3/uL Lymphocytes 1.5 10 3/uL Monocytes 1.0 10 3/uL Eosinophils 0.0 10 3/uL Basophils 0.0 10 3/uL Neutrophil % 83.6 % Lymphocyte % 9.2 % Monocyte % 6.0 % Eosinophil % 0.2 % Basophils % 0.3 % NRBC % 0 % Problem List: 1. Diffuse large B-cell lymphoma, germinal center subtype. By clinical evaluation, he had at least stage II disease. His IPI score with stage II disease and normal LDH was 2, low-intermediate risk. He was treated with 4 cycles of R-CEOP chemotherapy from 04/14/2019 thru 07/15/2019. He had a complete response by PET/CT. 2. There was also PET/CT evidence of FDG uptake in the area of the cecum, clinical significance of which was uncertain. 3. 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 4. He has Crohn's disease for which he had been on long-term treatment with Remicade. It was stopped with diagnosis of his lymphoma. 5. Hypertension. 6. Dyslipidemia. 7. Coronary artery disease with ischemic cardiomyopathy and congestive heart failure. 8. COPD. 9. Esophageal dysmotility. 10. Benign essential tremor. 11. History of nephrolithiasis. 12. Glaucoma. Problems Addressed with this Encounter and Plan: 1. Patient with diffuse large B-cell lymphoma, germinal center subtype. By clinical evaluation, he had at least stage II disease at initial diagnosis in February 2019. He had complete response by PET/CT to initial chemotherapy with 4 cycles of R-C EOP, completed in June 2019. He had PET/CT evidence of recurrence in the right side of the neck in January 2020. He was treated with involved field radiation, completed on 04/01/2020 to a total dose of 5000 cGy. His repeat neck CT on 05/04/2020 showed residual ill-defined soft tissue in the right cervical chain measuring 2.1 x 1.2 cm. Restaging PET/CT on 08/13/2020 showed no suspicious adenopathy to suggest recurrence of lymphoma. There was minimal FDG uptake noted in a mixed groundglass/solid left upper lobe pulmonary nodule measuring 1.2 cm. It was felt to be suspicious for malignancy, though the SUV was only 1.5. During follow-up there has been some gradual improvement in his performance status. His surveillance CT scans thus far have shown no evidence of recurrence of the lymphoma. He continues on expectant management. He will be scheduled for a follow-up visit in 3 months. 2. During the surveillance for his lymphoma he was found to have a spiculated left upper lobe pulmonary nodule, felt to be suspicious for primary lung neoplasm. On his repeat PET/CT in May 2021 it had increased slightly in size and it had low-grade SUV activity, which also had increased. The lesion is not in any location that would be accessible for biopsy. I have reviewed the imaging studies with Dr. Pierre. At least for now it will be followed expectantly, but with close monitoring. 3. 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 Thus far during follow-up there has been no evidence of recurrence of the lung cancer. Management is as noted above. 3. He has multiple prominent actinic lesions in the head/facial area. He is being followed by a design maintenance engineer. Signed By: José Manuel Felton M.D. <<Signature on File>>
== END 2021-09-07 12:50 | disposition home or self-care (01) ==
PROVIDERS: PCP Family Medicine; Visit Provider Internal Medicine Medical Oncology
DX: D50.9 Iron deficiency anemia, unspecified (principal); C83.38 Diffuse large B-cell lymphoma, lymph nodes of multiple sites; C34.11 Malignant neoplasm of upper lobe, right bronchus or lung; I10 Essential (primary) hypertension; E78.5 Hyperlipidemia, unspecified; I25.10 Atherosclerotic heart disease of native coronary artery without angina pectoris; I50.9 Heart failure, unspecified; J44.9 Chronic obstructive pulmonary disease, unspecified; G25.0 Essential tremor; H40.9 Unspecified glaucoma; Z79.899 Other long term (current) drug therapy
CPT/HCPCS: 99214

== ENCOUNTER 2021-12-05 13:02 | Oncology outpatient (recurring) (ONCR) | payer MEDICARE, SELFPAY ==
--- NOTE | 2021-11-30 09:16 | CT_ITS ---
WS: [id number] CT CHEST TECHNIQUE: Noncontrast CT of the chest with coronal and sagittal reformatted images. CLINICAL INFORMATION: LUNG CANCER/PULMONARY NODULE COMPARISON: CT August 17, 2021 PET/CT June 03, 2021 DLP: 671.[address] scans at [facility] use at least one of these dose optimization techniques: automated e xposure control; mA and/or kV adjustment per patient size (includes targeted exams where dose is matc hed to clinical indication); or iterative reconstruction. FINDINGS:Spiculated LEFT upper lobe neoplasm previously measured 1.5 x 1.9 cm and today measures 1.9 x 1.5 cm not significantly change compared to previous. LEFT upper lobe opacity previously measuring 4 mm previously appears increased in size measuring 6 mm today. Recommend 6 month follow-up. Moderate chronic emphysematous changes. RIGHT lung is well aerated. No acute pulmonary infiltrates. N o focal pneumonia or pleural fluid. No mediastinal or hilar lymphadenopathy. Prior sternotomy and CABG. Tiny calcified RIGHT thyroid nodu le is unchanged. Normal caliber descending thoracic aorta. Adrenal glands are normal. Cholecystectomy clips. Hypertrophic changes thoracic spine. Several tiny s clerotic foci in the thoracic spine are unchanged. CT/CT chest wo con [id number] IMPRESSION: 1. Stable spiculated left upper lobe pulmonary opacity suspicious for neoplasm. This is unchanged since PET/CT June 03, [address] chest August 17, 2021 . 2. No mediastinal or hilar lymphadenopathy. 3. Noncalcified opacity left upper lobe near the apex appears slightly larger t heriberto measuring 6 mm. Recommend 6 month follow-up. 4. Prior cholecystectomy.
== END 2021-12-26 23:59 | disposition home or self-care (01) ==
LOC: RAD 13:03 → ONCMED 12-06 00:01 → RAD 01-09 11:04
PROVIDERS: PCP Family Medicine; Referring Provider Internal Medicine; Visit Provider Internal Medicine Medical Oncology
DX: C34.11 Malignant neoplasm of upper lobe, right bronchus or lung (principal); D50.8 Other iron deficiency anemias; R91.1 Solitary pulmonary nodule; D50.9 Iron deficiency anemia, unspecified; F17.200 Nicotine dependence, unspecified, uncomplicated
CPT/HCPCS: 36415; 71250; 80053; 83615; 85025

== ENCOUNTER 2023-06-10 09:00 | Outpatient (CLI) | payer MEDICARE, SELFPAY ==
[2023-06-10 11:28] LABS: Basophils % 0.3 %; Eosinophils # 0.1 10^3/uL (0.0-0.8); Hematocrit 42.6 % (37-53); Lymphocytes # 1.4 10^3/uL (0.8-4.8); Lymphocytes % 11.9 %; Mean Corpuscular HGB Conc 30.8 g/dL (30-55); Mean Corpuscular Hemoglobin 28.1 pg (27-33); Mean Corpuscular Volume 91.4 fl (82-101); Mean Platelet Volume 11.2 fL (7.4-10.4); Monocytes # 0.9 10^3/uL (0.2-0.9); Monocytes % 7.6 %; Neutrophils # 9.28 10^3/uL (1.8-7.7); Neutrophils % 78.6 %; Nucleated Red Blood Cells % 0 %; Platelet Count 251 10^3/cmm (157-399); Red Blood Count 4.66 10^6/uL (3.85-5.65); Red Cell Distribution Width 14.8 % (12.1-15.1); White Blood Count 11.81 10^3/uL (3.29-11.43)
[2023-06-10 11:50] LABS: Estmated Average Glucose 111; Hemoglobin A1C 5.5 % (4.0-6.0)
[2023-06-10 11:54] LABS: Alanine Aminotransferase 6 U/L (0-41); Albumin Level 3.2 g/dL (3.5-5.2); Alkaline Phosphatase 130 U/L (40-130); Anion Gap 11.3 (5-19); Aspartate Amino Transferase 12 U/L (0-40); Blood Urea Nitrogen 8 mg/dL (8-23); Calcium 8.5 mg/dL (8.5-10.5); Carbon Dioxide 32 mmol/L (22-29); Chloride 102 mmol/L (98-107); Chol HDL Ratio 2.08 mg/dL (1.0-5.00); Cholesterol 79 mg/dL (0-200); Globulin 2.5 g/dL (1.3-4.6); Glucose 130 mg/dL (65-115); HDL Cholesterol 38 mg/dL (60-100); LDL Cholesterol Calculated 25 mg/dL (50-129); LDL HDL Ratio 0.66 RATIO (0.00-3.22); Magnesium 1.9 mg/dL (1.7-2.3); Osmolality Calculated 294 mOsm/kg (285-295); Potassium 3.3 mmol/L (3.5-5.1); Sodium 142 mmol/L (136-145); Total Bilirubin 0.4 mg/dL (0.15-1.2); Total Protein 5.7 g/dL (6.6-8.7); Triglycerides 81 mg/dL (0-150)
== END 2023-06-10 09:01 | disposition home or self-care (01) ==
LOC: LAB 08-12 09:50
PROVIDERS: PCP Family Medicine; Visit Provider Registered Nurse
DX: I50.42 Chronic combined systolic (congestive) and diastolic (congestive) heart failure (principal); E11.9 Type 2 diabetes mellitus without complications
CPT/HCPCS: 80053; 80061; 83036; 83735; 85025

== ENCOUNTER 2023-06-19 15:48 | Oncology outpatient (recurring) (ONCR) | payer MEDICARE, SELFPAY | END 2023-06-27 23:59 | disposition home or self-care (01) | LOC: ONCMED 15:53 | PROVIDERS: PCP Family Medicine; Visit Provider Internal Medicine Medical Oncology | DX: C83.30 Diffuse large B-cell lymphoma, unspecified site (principal); Z79.899 Other long term (current) drug therapy ==